=== PATIENT | female | born 1955 | race Caucasian/White ===

== ENCOUNTER 2020-06-28 16:14 | Inpatient (IN) | payer MEDICARE, MEDICAID ==
[2020-06-28] VITALS (11 sets, daily range): BP systolic 78–114; BP diastolic 57–81
[~2020-06-28] VITALS: Ht 167.6 cm; Wt 49.1 kg
[2020-06-28] MEDS ORDERED: ONDANSETRON 4 MG/2 ML (SDV) Z0FRAN IV PRN (17:45)
--- NOTE | 2020-06-28 20:00 | NUR ---
PER REBECCA FERNANDEZ, PT'S COVID RESULTS ARE NEGATIVE.
[2020-06-28] MEDS ORDERED: ENOXAPARIN 40 MG/0.4 ML (LOVENOX) SYR ONE (20:48)
[2020-06-28] MEDS ORDERED: NS IV 1000 ML 1,000 ML ONE (20:48)
[2020-06-28] MEDS: NS IV 1000 ML 1,000 ML IV SCH (20:57)
[2020-06-28] MEDS ORDERED: NS (IVPB) 100 ML ONE (21:05)
[2020-06-28] MEDS ORDERED: fentaNYL (OMNICELL DRIP KIT ONLY) 250 MCG/5 ML AMP ONE (21:05)
[2020-06-28] MEDS: inSUlin ASPART (NovoLOG) 1 UNIT/0.01 ML (CHARGE PER UNIT) SC SCH (21:27)
[2020-06-28 21:28] LABS: HEMATOCRIT 33 % (35-52); HEMOGLOBIN 10.2 g/dL (11.5-16.0); MEAN CORPUSCULAR HEMOGLOBIN 28 pg (25-34); MEAN CORPUSCULAR HGB CONC 31 g/dL (32-36); MEAN CORPUSCULAR VOLUME 90 fL (80-99); MEAN PLATELET VOLUME 9.8 fL (9.0-12.2); PLATELET COUNT 234 10^3/uL (130-400); WHITE BLOOD COUNT 15.2 10^3/uL (4.3-11.0)
--- NOTE | 2020-06-28 21:29 | Diagnostic Imaging Report ---
INDICATION: Intubated. COMPARISON: None. EXAMINATION: Single view of the chest. FINDINGS: The ET tube is in the mid to distal trachea. NG tube is well within the stomach. Heart is enlarged with interstitial infiltrates, mainly in the right hemithorax, likely pulmonary edema. Small effusion is seen in the left base. There is no pneumothorax. Pacemaker is stable. IMPRESSION: 1. Cardiac enlargement with interstitial infiltrates, more so on the right than the left, likely pulmonary edema. Underlying pneumonia not excluded. 2. Small effusion left base. 3. Well-positioned support devices. Dictated by: Dictated on workstation # [id number]
[2020-06-28] MEDS: fentaNYL INJECTION 1,250 MCG in NS (IVPB) 250 ML IV SCH (21:33)
[2020-06-28 21:36] LABS: CALCIUM 8.1 MG/DL (8.5-10.1); CREATININE SERUM 1.25 MG/DL (0.60-1.30); POTASSIUM 4.1 MMOL/L (3.6-5.0)
[2020-06-28 22:14] LABS: BASOPHILS % (AUTO) 0 % (0-10); EOSINOPHILS % (AUTO) 0 % (0-10); LYMPHOCYTES % (AUTO) 7 % (12-44); MONOCYTES # (AUTO) 0.5 X 10^3 (0.0-1.0); MONOCYTES % (AUTO) 4 % (0-12); NEUTROPHILS # (AUTO) 13.5 X 10^3 (1.8-7.8); NEUTROPHILS % (AUTO) 89 % (42-75)
[2020-06-28 22:15] LABS: ANISOCYTOSIS SLIGHT; BAND NEUTROPHILS 2 %; HYPOCHROMASIA SLIGHT; LYMPHOCYTES % (MANUAL) 8 %; MICROCYTOSIS SLIGHT; MONOCYTES % (MANUAL) 2 %; NEUTROPHILS % (MANUAL) 88 %
[2020-06-28] MEDS: LORazepam INJECTION FOR DRIP 20 MG in D5W 100 ML IVPB 90 ML IV SCH (22:33)
[2020-06-28] MEDS: ENOXAPARIN 30 MG/0.3 ML (LOVENOX) SYR SC SCH (22:37)
--- NOTE | 2020-06-28 22:43 | NUR ---
NOTIFIED E-ICU OF PATIENTS ARRIVAL AT APPROX 2100 AND RECEIVED ORDERS FOR ATIVAN AND FENT GTT.
[2020-06-29] VITALS (30 sets, daily range): BP systolic 81–104; BP diastolic 50–74
[2020-06-29 00:02] LABS: ABG BASE EXCESS 2.3 MMOL/L (-2.5-2.5); ABG OXYGEN SATURATION 98 % (94-100); ABG PCO2 41 MMHG (35-45); ABG PH 7.43 (7.37-7.43); ABG PO2 97 MMHG (79-93); ABG TCO2 27.7 MMOL/L (21.0-31.0)
[2020-06-29 00:03] LABS: INSPIRED O2 30; PATIENT TEMP 36.5; VENTILATOR YES
[2020-06-29] MEDS: NS IV 1000 ML 1,000 ML IV SCH ×4 (01:42→20:39)
--- NOTE | 2020-06-29 02:25 | NUR ---
NOTIFIED E-ICU @ THIS TIME OF 99 TELE STRIP SHOWING BUNDLE BRANCH BLOCK OF .15
[2020-06-29 02:53] LABS: BASOPHILS % (AUTO) 0 % (0-10); EOSINOPHILS # (AUTO) 0.1 10^3/uL (0.0-0.3); EOSINOPHILS % (AUTO) 1 % (0-10); HEMATOCRIT 30 % (35-52); HEMOGLOBIN 9.4 g/dL (11.5-16.0); LYMPHOCYTES # (AUTO) 1.3 10^3/uL (1.0-4.0); LYMPHOCYTES % (AUTO) 12 % (12-44); MEAN CORPUSCULAR HEMOGLOBIN 28 pg (25-34); MEAN CORPUSCULAR HGB CONC 31 g/dL (32-36); MEAN CORPUSCULAR VOLUME 92 fL (80-99); MEAN PLATELET VOLUME 9.7 fL (9.0-12.2); MONOCYTES # (AUTO) 0.5 10^3/uL (0.0-1.0); MONOCYTES % (AUTO) 5 % (0-12); NEUTROPHILS # (AUTO) 8.5 10^3/uL (1.8-7.8); NEUTROPHILS % (AUTO) 81 % (42-75); PLATELET COUNT 201 10^3/uL (130-400); WHITE BLOOD COUNT 10.4 10^3/uL (4.3-11.0)
[2020-06-29 03:15] LABS: ALBUMIN 3.1 GM/DL (3.2-4.5); POTASSIUM 3.8 MMOL/L (3.6-5.0)
[2020-06-29 03:18] LABS: TOTAL PROTEIN 5.4 GM/DL (6.4-8.2)
[2020-06-29 03:21] LABS: CREATININE SERUM 1.15 MG/DL (0.60-1.30); PHOSPHORUS 3.4 MG/DL (2.3-4.7)
[2020-06-29 03:24] LABS: MAGNESIUM 1.9 MG/DL (1.6-2.4)
[2020-06-29] MEDS: inSUlin ASPART (NovoLOG) 1 UNIT/0.01 ML (CHARGE PER UNIT) SC SCH ×4 (05:33→17:55)
--- NOTE | 2020-06-29 07:01 | History & Physical-Hospitalist ---
History of Present Illness HPI/Chief Complaint CC: Respiratory failure HPI: This is a 64yoWF who was transferred from [facility] who is currently on a vent due to CHF and COPD. Patient is sedated and having no issues. I am having difficulty finding information with clinical details. Source: patient Exam Limitations: no limitations Date Seen 06/29/20 Time Seen by a Provider: 11:00 Attending Physician Vanita Hartmann MD PCP Referring Physician Date of Admission Jun 28, 2020 at 20:38 Home Medications & Allergies Home Medications Reviewed patient Home Medication Reconciliation performed by pharmacy medication reconciliations mobile battery technician and/or nursing. Patients Allergies have been reviewed. Allergies Allergies Coded Allergies Iodinated Contrast Media (Verified Allergy, Unknown, 06/28/20) ibuprofen (Verified Allergy, Unknown, 06/28/20) iodine (Verified Allergy, Unknown, 06/28/20) Past Vrucjpo-Qxxiau-Uhrctn Hx Past Med/Social Hx: Reviewed Nursing Past Med/Soc Hx, Reviewed and Corrections made Patient Social History Alcohol Use: Denies Use Recreational Drug Use: No Smoking Status: Current Everyday Smoker Type Used: Cigarettes Physical Abuse Screen: No Sexual Abuse: No Recent Hopitalizations: Yes Seasonal Allergies Seasonal Allergies: No Past Medical History Respiratory: COPD Cardiac: Chronic Edema/Swelling Female Reproductive Disorders: Denies Genitourinary: Renal Failure Gastrointestinal: Ulcer Musculoskeletal: Arthritis, Fractures Psychosocial: Anxiety, Depression History of Blood Disorders: No Review of Systems Constitutional: see HPI Physical Exam Physical Exam Vital Signs Vital Signs - First Documented 06/28/20 06/28/20 20:38 20:52 Temp 36.8 Pulse 77 Resp 20 B/P (MAP) 112/81 Pulse Ox 97 O2 Delivery Mechanical Ventilator O2 Flow Rate 40.00 FiO2 40 Capillary Refill : Height, Weight, BMI Height: '" Weight: lbs. oz. kg; 17.97 BMI Method: General Appearance: No Apparent Distress, Chronically ill, Thin, Other (intubated) Respiratory: Lungs Clear, Decreased Breath Sounds Cardiovascular: Regular Rate, Rhythm Results Results/Procedures Labs Laboratory Tests 06/28/20 21:11 06/29/20 02:30 Patient resulted labs reviewed. Assessment/Plan Admission Diagnosis Assessment: VDRF CHF COPD Smoker Plan: Vent ICU Admission Status: Inpatient Order (span 2 midnights) Reason for Inpatient Admission: VDRF Diagnosis/Problems Diagnosis/Problems (1) Acute respiratory failure Clinical Quality Measures DVT/VTE Risk/Contraindication: Risk Factor Score Per Nursin RFS Level Per Nursing on Admit: 4+=Very High TIMA HENSON DO Jun 29, 2020 07:01
--- NOTE | 2020-06-29 07:26 | Diagnostic Imaging Report ---
EXAMINATION: Chest 1 view HISTORY: Intubation COMPARISON: Chest radiograph 06/28/2020 FINDINGS: Heart size and pulmonary vasculature are stable. Left-sided cardiac device is unchanged. Stable patchy interstitial opacities throughout both lungs. No pneumothorax. Stable small left pleural effusion. The osseous structures are intact. Lines and tubes are unchanged. IMPRESSION: 1. Cardiomegaly with stable patchy interstitial opacities may be secondary to pulmonary edema. Differential interpretation with include pneumonia in the appropriate clinical setting. 2. Small left pleural effusion. 3. Lines and tubes are unchanged. Dictated by: Dictated on workstation # [id number]
[2020-06-29] MEDS ORDERED: RT-ALBUTEROL INHALER HFA (VENTOLIN HFA) 18 GM IH PRN (07:45)
[2020-06-29] MEDS: PANTOPRAZOLE 40 MG (PROTONIX) VIAL IV SCH (07:55)
[2020-06-29] MEDS ORDERED: RT-ALBUTEROL SULF 2.5 MG/3 ML PRE-MIX VIAL INH SCH (08:00)
[2020-06-29] MEDS ORDERED: RT-ALBUTEROL INHALER HFA (VENTOLIN HFA) 18 GM IH SCH (08:00)
[2020-06-29] MEDS: LORazepam INJECTION FOR DRIP 20 MG in D5W 100 ML IVPB 90 ML IV SCH ×2 (08:05→17:55)
[2020-06-29] MEDS: RT-ALBUTEROL INHALER HFA (VENTOLIN HFA) 18 GM IH SCH ×4 (10:57→22:02)
--- NOTE | 2020-06-29 13:02 | Consultation-Cardiology ---
HPI-Cardiology Cardiology Consultation Date of Consultation 06/29/20 Date of Admission Time Seen by Provider: 12:57 Indication: acute respiratory failure HPI 64-year-old lady with extensive history, never been to this institution previously, she was intubated in the emergency room in [place] and transferred to our facility. Noted to have elevated troponin and BNP. There is q uestionable history of coronary artery disease and congestive heart failure. Unable to provide any history. History was obtained by reviewing her record Home Medications & Allergies Allergies: Coded Allergies: Iodinated Contrast Media (Verified Allergy, Unknown, 06/28/20) ibuprofen (Verified Allergy, Unknown, 06/28/20) iodine (Verified Allergy, Unknown, 06/28/20) Unable to verify her medication list HFQ-Vutnkk-Lihrht Hx Patient Social History Alcohol Use: Denies Use Recreational Drug Use: No Smoking Status: Current Everyday Smoker Type Used: Cigarettes Recent Hopitalizations: Yes Physical Abuse Screen: No Sexual Abuse: No Past Medical History Discussed below Family Medical History Family Medical Hx Unable to provide family Review of Systems-General Review of Systems Constitutional: other (sedated and intubated, unable to provide review of systems) Reviewed Test Results Reviewed Test Results Lab Laboratory Tests Test 06/28/20 20:59 06/28/20 21:11 06/28/20 23:50 06/29/20 02:30 Range/Units Glucometer 113 H 70-110 MG/DL White Blood Count 15.2 H 10.4 4.3-11.0 10^3/uL Red Blood Count 3.61 L 3.32 L 3.80-5.11 10^6/uL Hemoglobin 10.2 L 9.4 L 11.5-16.0 g/dL Hematocrit 33 L 30 L 35-52 % Mean Corpuscular Volume 90 92 80-99 fL Mean Corpuscular Hemoglobin 28 28 25-34 pg Mean Corpuscular Hemoglobin Concent 31 L 31 L 32-36 g/dL Red Cell Distribution Width 14.6 H 14.6 H 10.0-14.5 % Platelet Count 234 201 130-400 10^3/uL Mean Platelet Volume 9.8 9.7 9.0-12.2 fL Immature Granulocyte % (Auto) 1 1 % Neutrophils (%) (Auto) 89 H 81 H 42-75 % Lymphocytes (%) (Auto) 7 L 12 12-44 % Monocytes (%) (Auto) 4 5 0-12 % Eosinophils (%) (Auto) 0 1 0-10 % Basophils (%) (Auto) 0 0 0-10 % Neutrophils # (Auto) 13.5 H 8.5 H 1.8-7.8 10^3/uL Lymphocytes # (Auto) 1.0 1.3 1.0-4.0 10^3/uL Monocytes # (Auto) 0.5 0.5 0.0-1.0 10^3/uL Eosinophils # (Auto) 0.0 0.1 0.0-0.3 10^3/uL Basophils # (Auto) 0.0 0.0 0.0-0.1 10^3/uL Immature Granulocyte # (Auto) 0.1 0.1 0.0-0.1 10^3/uL Neutrophils % (Manual) 88 % Lymphocytes % (Manual) 8 % Monocytes % (Manual) 2 % Band Neutrophils 2 % Hypochromasia SLIGHT Anisocytosis SLIGHT Microcytosis SLIGHT Sodium Level 140 140 135-145 MMOL/L Potassium Level 4.1 3.8 3.6-5.0 MMOL/L Chloride Level 103 105 98-107 MMOL/L Carbon Dioxide Level 24 24 21-32 MMOL/L Anion Gap 13 11 5-14 MMOL/L Blood Urea Nitrogen 22 H 22 H 7-18 MG/DL Creatinine 1.25 1.15 0.60-1.30 MG/DL Estimat Glomerular Filtration Rate 43 48 BUN/Creatinine Ratio 18 19 Glucose Level 101 92 70-105 MG/DL Calcium Level 8.1 L 8.0 L 8.5-10.1 MG/DL Troponin I 0.054 H 0.060 H <0.028 NG/ML B-Type Natriuretic Peptide 2128.7 H <100.0 PG/ML Blood Gas Puncture Site LEFT RADIAL Blood Gas Patient Temperature 36.5 Arterial Blood pH 7.43 7.37-7.43 Arterial Blood Partial Pressure CO2 41 35-45 MMHG Arterial Blood Partial Pressure O2 97 H 79-93 MMHG Arterial Blood HCO3 26 23-27 MMOL/L Arterial Blood Total CO2 27.7 21.0-31.0 MMOL/L Arterial Blood Oxygen Saturation 98 94-100 % Arterial Blood Base Excess 2.3 -2.5-2.5 MMOL/L Dar Test UNKNOWN Blood Gas Ventilator Setting YES Blood Gas Inspired Oxygen 30 Corrected Calcium 8.7 8.5-10.1 MG/DL Phosphorus Level 3.4 2.3-4.7 MG/DL Magnesium Level 1.9 1.6-2.4 MG/DL Total Bilirubin 1.0 0.1-1.0 MG/DL Aspartate Amino Transf (AST/SGOT) 110 H 5-34 U/L Alanine Aminotransferase (ALT/SGPT) 112 H 0-55 U/L Alkaline Phosphatase 95 40-136 U/L Total Protein 5.4 L 6.4-8.2 GM/DL Albumin 3.1 L 3.2-4.5 GM/DL Test 06/29/20 07:00 06/29/20 07:48 Range/Units Troponin I 0.061 H <0.028 NG/ML Physical Exam Physical Exam Vital Signs Vital Signs - First Documented 06/28/20 06/28/20 20:38 20:52 Temp 36.8 Pulse 77 Resp 20 B/P (MAP) 112/81 Pulse Ox 97 O2 Delivery Mechanical Ventilator O2 Flow Rate 40.00 FiO2 40 Capillary Refill : Height, Weight, BMI Height: '" Weight: lbs. oz. kg; 17.97 BMI Method: General Appearance: Severe Distress, Thin, Other (sedated and intubated) HEENT: PERRL/EOMI, TMs Normal, Moist Mucous Membranes Neck: Normal Inspection, Supple Respiratory: Crackles, Decreased Breath Sounds, Respiratory Distress Cardiovascular: Regular Rate, Rhythm, Systolic Murmur, Gallop/S3 Gastrointestinal: Normal Bowel Sounds, No Organomegaly Back: Normal Inspection Extremity: Normal Capillary Refill, Normal Inspection Neurologic/Psychiatric: Other (sedated and intubated) Skin: Normal Color, Warm/Dry Lymphatic: No Adenopathy A/P-Cardiology Admission Diagnosis Congestive heart failure Type II myocardial infarction Acute respiratory failure COPD Assessment/Plan Acute respiratory failure, ventilator dependent, history of multiple hospitalization with recurrent respiratory failure. Managed by primary care team Congestive heart failure, questionable history of severe cardiomyopathy with ejection fraction 10-15 percent, no recent workup data available, I will try to obtain copy of her record from [facility] Questionable history of coronary artery disease, slight elevation in troponin, probably type II myocardial infarction secondary to heart failure and hypoxemia History of permanent pacemaker/ICD, currently in paced rhythm. Continue to monitor History of COPD with recurrent respiratory failure COVID-19 status pending Elevated liver enzymes, continue to monitor the Clinical Quality Measures DVT/VTE Risk/Contraindication: Risk Factor Score Per Nursin RFS Level Per Nursing on Admit: 4+=Very High CADEN ROBERTO MD Jun 29, 2020 1:02 pm
[2020-06-29] MEDS: FUROSEMIDE 40 MG/4 ML INJ (LASIX) IVP SCH (17:58)
[2020-06-29] MEDS: ENOXAPARIN 30 MG/0.3 ML (LOVENOX) SYR SC SCH (20:39)
[2020-06-29] MEDS ORDERED: ENOXAPARIN 40 MG/0.4 ML (LOVENOX) SYR SC SCH (21:00)
[2020-06-29] MEDS: fentaNYL INJECTION 1,250 MCG in NS (IVPB) 250 ML IV SCH (21:15)
[2020-06-30] VITALS (28 sets, daily range): BP systolic 69–101; BP diastolic 18–76
[2020-06-30] MEDS: inSUlin ASPART (NovoLOG) 1 UNIT/0.01 ML (CHARGE PER UNIT) SC SCH ×4 (01:46→18:20)
[2020-06-30] MEDS: LORazepam INJECTION FOR DRIP 20 MG in D5W 100 ML IVPB 90 ML IV SCH (01:46)
[2020-06-30] MEDS: RT-ALBUTEROL INHALER HFA (VENTOLIN HFA) 18 GM IH SCH ×6 (01:52→21:56)
[2020-06-30 02:07] LABS: ABG BASE EXCESS 0.6 MMOL/L (-2.5-2.5); ABG OXYGEN SATURATION 95 % (94-100); ABG PCO2 36 MMHG (35-45); ABG PH 7.44 (7.37-7.43); ABG PO2 73 MMHG (79-93); ABG TCO2 25.6 MMOL/L (21.0-31.0)
[2020-06-30 02:08] LABS: ALLENS TEST POSITIVE; INSPIRED O2 21; PATIENT TEMP 36; VENTILATOR YES
[2020-06-30 02:48] LABS: BASOPHILS % (AUTO) 0 % (0-10); EOSINOPHILS # (AUTO) 0.1 10^3/uL (0.0-0.3); EOSINOPHILS % (AUTO) 1 % (0-10); HEMATOCRIT 30 % (35-52); HEMOGLOBIN 9.5 g/dL (11.5-16.0); LYMPHOCYTES # (AUTO) 1.1 10^3/uL (1.0-4.0); LYMPHOCYTES % (AUTO) 11 % (12-44); MEAN CORPUSCULAR HEMOGLOBIN 29 pg (25-34); MEAN CORPUSCULAR HGB CONC 32 g/dL (32-36); MEAN CORPUSCULAR VOLUME 91 fL (80-99); MEAN PLATELET VOLUME 9.9 fL (9.0-12.2); MONOCYTES # (AUTO) 0.6 10^3/uL (0.0-1.0); MONOCYTES % (AUTO) 6 % (0-12); NEUTROPHILS # (AUTO) 7.8 10^3/uL (1.8-7.8); NEUTROPHILS % (AUTO) 81 % (42-75); PLATELET COUNT 210 10^3/uL (130-400); WHITE BLOOD COUNT 9.7 10^3/uL (4.3-11.0)
[2020-06-30 03:02] LABS: POTASSIUM 3.3 MMOL/L (3.6-5.0)
[2020-06-30 03:03] LABS: CALCIUM 7.8 MG/DL (8.5-10.1)
[2020-06-30 03:07] LABS: CREATININE SERUM 1.06 MG/DL (0.60-1.30); PHOSPHORUS 2.7 MG/DL (2.3-4.7)
[2020-06-30 03:10] LABS: MAGNESIUM 1.7 MG/DL (1.6-2.4)
[2020-06-30] MEDS: MAGNESIUM 1 GM/100 ML IVPB 100 ML IV SCH ×3 (03:28→07:48)
[2020-06-30] MEDS: POTASSIUM CL 10MEQ/50ML IVPB 50 ML IV SCH ×9 (03:28→10:00)
[2020-06-30] MEDS: KCL 20 MEQ TAB (K-DUR) PO SCH (03:28)
[2020-06-30] MEDS: FUROSEMIDE 40 MG/4 ML INJ (LASIX) IVP SCH ×2 (05:05→17:39)
[2020-06-30] MEDS: NS IV 1000 ML 1,000 ML IV SCH (05:05)
--- NOTE | 2020-06-30 05:55 | Pulmonary Consultation ---
History of Present Illness History of Present Illness Date Seen by Provider: Jun 30, 2020 Time Seen by Provider: 05:50 Date of Admission Reason for Visit: acute respiratory failure Allergies and Home Medications Allergies Coded Allergies: Iodinated Contrast Media (Verified Allergy, Unknown, 06/28/20) ibuprofen (Verified Allergy, Unknown, 06/28/20) iodine (Verified Allergy, Unknown, 06/28/20) Past Ogpliba-Awavyk-Hohhen Hx Past Med/Social Hx: Reviewed Nursing Past Med/Soc Hx, Reviewed and Corrections made Patient Social History Alcohol Use: Denies Use Recreational Drug Use: No Smoking Status: Current Everyday Smoker Type Used: Cigarettes Recent Hopitalizations: Yes Seasonal Allergies Seasonal Allergies: No Past Medical History Surgeries: Yes Respiratory: Yes Pneumonia, Pulmonary Embolism, COPD, Emphysema Cardiac: Yes Chronic Edema/Swelling Neurological: Yes Female Reproductive Disorders: Denies Genitourinary: Yes Renal Failure Gastrointestinal: Yes Ulcer Musculoskeletal: Yes Arthritis, Fractures Endocrine: Yes HEENT: No Cancer: No Psychosocial: Yes Anxiety, Depression Integumentary: No Blood Disorders: No Review of Systems Time Seen by Provider: 05:57 Sepsis Event Evaluation Height, Weight, BMI Height: '" Weight: lbs. oz. kg; 17.97 BMI Method: Exam Exam Vital Signs Date Time Temp Pulse Resp B/P (MAP) Pulse Ox O2 Delivery O2 Flow Rate FiO2 06/30/20 04:00 95 Mechanical Ventilator 21 06/30/20 01:54 69 17 92 21 06/30/20 01:46 70 19 100/62 06/30/20 00:00 91 Mechanical Ventilator 21 06/30/20 00:00 69 16 82/49 (60) 93 Mechanical Ventilator 21.00 06/29/20 23:00 69 16 84/50 (61) 92 Mechanical Ventilator 21.00 06/29/20 22:02 69 16 93 21 06/29/20 22:00 69 16 82/56 (65) 93 Mechanical Ventilator 21.00 06/29/20 21:00 96 16 99/74 (82) 92 Mechanical Ventilator 21.00 06/29/20 20:00 69 16 95/62 (73) 90 Mechanical Ventilator 21.00 06/29/20 20:00 91 Mechanical Ventilator 21 06/29/20 19:04 70 06/29/20 19:02 69 20 90 21 06/29/20 19:00 69 17 101/64 (76) 91 Mechanical Ventilator 21.00 06/29/20 18:00 69 16 93/60 (71) 90 Mechanical Ventilator 21.00 06/29/20 17:00 68 16 85/55 (65) 91 Mechanical Ventilator 21.00 06/29/20 16:00 36.5 06/29/20 16:00 91 Mechanical Ventilator 21 06/29/20 16:00 70 16 89/58 (68) 92 Mechanical Ventilator 21.00 06/29/20 15:00 69 16 88/61 (70) 91 Mechanical Ventilator 21.00 06/29/20 14:00 69 16 94/61 (72) 97 Mechanical Ventilator 21.00 06/29/20 13:54 70 20 93 21 06/29/20 13:00 69 15 91/58 (69) 93 Mechanical Ventilator 21.00 06/29/20 12:34 70 06/29/20 12:00 93 Mechanical Ventilator 21 06/29/20 12:00 36.8 06/29/20 12:00 69 16 93/54 (67) 93 Mechanical Ventilator 21.00 06/29/20 11:00 68 16 97/60 (69) 94 Mechanical Ventilator 21.00 06/29/20 10:57 69 16 94 21 06/29/20 10:00 69 16 94/65 (75) 93 Mechanical Ventilator 21.00 06/29/20 09:00 68 15 86/59 (69) 92 Mechanical Ventilator 21.00 06/29/20 08:15 92 Mechanical Ventilator 21 06/29/20 08:08 36.2 06/29/20 08:05 70 16 96/61 06/29/20 08:00 70 16 96/61 (75) 93 Mechanical Ventilator 21.00 06/29/20 07:00 70 06/29/20 07:00 69 17 93/60 (72) 92 Mechanical Ventilator 25.00 06/29/20 06:18 69 16 96 21 06/29/20 06:00 69 16 81/56 (64) 96 Mechanical Ventilator 25.00 I & O 06/30/20 07:00 Intake Total 1100 ml Output Total 2725 ml Balance -1625 ml Height & Weight Height: '" Weight: lbs. oz. kg; 17.97 BMI Method: General Appearance: No Apparent Distress, Chronically ill, Thin, Other (intubated) HEENT: PERRL/EOMI, TMs Normal, Moist Mucous Membranes Neck: Normal Inspection, Supple Respiratory: Lungs Clear, Decreased Breath Sounds Cardiovascular: Regular Rate, Rhythm Extremity: Normal Capillary Refill, Normal Inspection Neurologic/Psychiatric: Other (sedated and intubated) Skin: Normal Color, Warm/Dry Lymphatic: No Adenopathy Results Lab Laboratory Tests 06/28/20 21:11 06/29/20 02:30 06/30/20 02:30 Assessment/Plan Assessment/Plan Acute respiratory failure -Will wean ventilator -D/C all sedation for weaning CHF -Cardiology following COPD and current smoker -Education -Out pt testing Hypokalemia -Replace -Monitor SIMONA SILVA DO Jun 30, 2020 05:55
[2020-06-30] MEDS ORDERED: POTASSIUM CL 10MEQ/50ML IVPB 50 ML IV SCH (06:00)
[2020-06-30] MEDS: PANTOPRAZOLE 40 MG (PROTONIX) VIAL IV SCH (07:48)
--- NOTE | 2020-06-30 07:59 | NUR ---
Pt noted to be slightly hypotensive 70/40s. Dr. Beltre notified. No new orders received as pt had 40mg of lasix this am at 0500. Hypotension noted to take place shortly after medication given. BP cuff adjusted and manual BP obtained. 85/45 noted at this time. Will continue to monitor.
--- NOTE | 2020-06-30 08:08 | Diagnostic Imaging Report ---
INDICATION: Shortness of breath. Comparison made with prior examination of 06/29/2020. FINDINGS: Cardiomegaly. There are bibasilar infiltrates, right greater than left. No pneumothorax. Pacemaker overlies left hemithorax. ET and NG tubes remain in satisfactory position. IMPRESSION: Slight improvement in the bibasilar infiltrates which are right greater than left. Cardiomegaly. Some underlying central pulmonary venous congestion cannot be excluded. Dictated by: Dictated on workstation # [id number]
--- NOTE | 2020-06-30 08:12 | Physical Therapy Progress Note ---
Therapy Progress Note Patient currently sedated and intubated. PT to follow patient status and initiate treatment when patient is medically stable and able to actively participate with skilled therapy. MARIXA BRIGGS PT Jun 30, 2020 08:12
--- NOTE | 2020-06-30 08:28 | Occ Therapy Progress Note ---
Therapy Progress Note OT order received, chart reviewed. Pt. currently sedated and on ventilator support. Will continue to follow and assess when pt. alert and off vent. Thank you for this referral. [id number] JAKUB ROCHE OT Jun 30, 2020 08:28
--- NOTE | 2020-06-30 09:33 | Progress Note - Hospitalist ---
Subjective HPI/CC On Admission Date Seen by Provider: Jun 30, 2020 Time Seen by Provider: 09:00 CC: Respiratory failure HPI: This is a 64yoWF who was [facility] who is currently on a vent due to CHF and COPD. Patient is sedated and having no issues. I am having difficulty finding information with clinical details. Subjective/Events-last exam Pt still intubated Still remains on sedation Hypotension after Lasix, will monitor that, systolic of 89 Echocardiogram shows EF of 10% BNP elevated at 793 Potassium 3.3, receiving supplement Creatinine stable at 1.06 Objective Exam Vital Signs Vital Signs Date Time Temp Pulse Resp B/P (MAP) Pulse Ox O2 Delivery O2 Flow Rate FiO2 07/01/20 04:00 76 18 95/61 (72) 96 Nasal Cannula 2.00 06/30/20 19:50 36.8 06/30/20 10:03 35 Capillary Refill : Less Than 3 Seconds General Appearance: No Apparent Distress, WD/WN, Other (intubated) HEENT: PERRL/EOMI, Normal ENT Inspection, Pharynx Normal, Moist Mucous Membranes Neck: Normal Inspection, Supple, Carotid Bruit Respiratory: Chest Non Tender, Lungs Clear, No Accessory Muscle Use, No Respiratory Distress, Decreased Breath Sounds Cardiovascular: Regular Rate, Rhythm, No Edema, No Gallop, No JVD, No Murmur, Normal Peripheral Pulses Gastrointestinal: Normal Bowel Sounds, No Organomegaly, No Pulsatile Mass, Non Tender, Soft Back: Normal Inspection, No CVA Tenderness Extremity: Normal Capillary Refill, Normal Inspection, Non Tender, No Calf Tenderness, No Pedal Edema Skin: Normal Color, Warm/Dry Lymphatic: No Adenopathy Results/Procedures Lab Laboratory Tests 07/01/20 02:26 Patient resulted labs reviewed. Assessment/Plan Assessment and Plan Assess & Plan/Chief Complaint Assessment: VDRF CHF COPD Smoker Plan: Vent ICU 06/30/20: Monitor CHF Extubate when ready Appreciate Dr. Beltre Diagnosis/Problems Diagnosis/Problems (1) Acute respiratory failure Clinical Quality Measures DVT/VTE Risk/Contraindication: Risk Factor Score Per Nursin RFS Level Per Nursing on Admit: 4+=Very High TIMA HENSON DO Jun 30, 2020 09:33
--- NOTE | 2020-06-30 10:57 | Progress Note - Cardiology ---
Cardiology SOAP Progress Note Subjective: Intubated Follows commands Objective: I&O/Vital Signs 07/02/20 07/02/20 07/02/20 07/02/20 00:15 02:37 04:32 07:43 Temp 36.4 36.2 Pulse 71 70 70 Resp 24 25 16 B/P (MAP) 102/62 (75) 91/52 (65) Pulse Ox 100 99 100 100 O2 Delivery NIV Bilevel High Flow N/C Nasal Cannula O2 Flow Rate 50.00 50.00 4.00 4.00 07/02/20 07/02/20 08:12 08:37 Temp 36.8 Pulse 69 B/P (MAP) 105/66 (79) O2 Delivery High Flow N/C O2 Flow Rate 3.00 07/02/20 00:00 Intake Total 440 ml Output Total 1200 ml Balance -760 ml Constitutional: other (intubated; following commands) Respiratory: No accessory muscle use, No respiratory distress; other (scattered rhonchi, bi-basilar crackles) Cardiovascular: regular rate-rhythm; No JVD; S1 and S2 Gastrointestional: No tender; soft, audible bowel sounds Extremities: no lower extremity edema bilateral Neurologic/Psychiatric: grossly intact (moves extremities) Skin: No rash on exposed areas, No ulcerations on exposed areas Results/Procedures: Labs Laboratory Tests 07/01/20 17:32: Blood Gas Puncture Site RT RAD, Blood Gas Patient Temperature 36.9, Arterial Blood pH 7.37, Arterial Blood Partial Pressure CO2 40, Arterial Blood Partial Pressure O2 122H, Arterial Blood HCO3 23, Arterial Blood Total CO2 23.9, Arterial Blood Oxygen Saturation 99, Arterial Blood Base Excess -1.9, Dar Test POS, Blood Gas Ventilator Setting NO, Blood Gas Inspired Oxygen 50% 07/01/20 17:51: White Blood Count 8.8, Red Blood Count 3.52L, Hemoglobin 10.0L, Hematocrit 32L, Mean Corpuscular Volume 92, Mean Corpuscular Hemoglobin 28, Mean Corpuscular Hemoglobin Concent 31L, Red Cell Distribution Width 14.3, Platelet Count 222, Mean Platelet Volume 9.8, Immature Granulocyte % (Auto) 1, Neutrophils (%) (Auto) 85H, Lymphocytes (%) (Auto) 8L, Monocytes (%) (Auto) 5, Eosinophils (%) (Auto) 1, Basophils (%) (Auto) 0, Neutrophils # (Auto) 7.5, Lymphocytes # (Auto) 0.7L, Monocytes # (Auto) 0.4, Eosinophils # (Auto) 0.1, Basophils # (Auto) 0.0, Immature Granulocyte # (Auto) 0.0, Sodium Level 139, Potassium Level 4.0, Chloride Level 106, Carbon Dioxide Level 22, Anion Gap 11, Blood Urea Nitrogen 16, Creatinine 1.06, Estimat Glomerular Filtration Rate 52, BUN/Creatinine Ratio 15, Glucose Level 152H, Calcium Level 8.6, Corrected Calcium 9.0, Total Bilirubin 0.6, Aspartate Amino Transf (AST/SGOT) 37H, Alanine Aminotransferase ( ALT/SGPT) 81H, Alkaline Phosphatase 82, B-Type Natriuretic Peptide 1373.7H, Total Protein 6.1L, Albumin 3.5 07/02/20 05:00: Sodium Level 142, Potassium Level 3.7, Chloride Level 107, Carbon Dioxide Level 26, Anion Gap 9, Blood Urea Nitrogen 13, Creatinine 0.94, Estimat Glomerular Filtration Rate 60, BUN/Creatinine Ratio 14, Glucose Level 81, Calcium Level 8.1L, Magnesium Level 1.8 Microbiology 06/28/20 MRSA Screen - Final, Complete MRSA not isolated Procedures NAME: [facility] REC#: [id number] PT STATUS: ADM IN : 1955 PHYSICIAN: GOLDIE WISE MD ADMIT DATE: 06/28/20/ICU Signed Date of Exam:06/30/20 CHEST 1 VIEW, AP/PA ONLY INDICATION: Shortness of breath. Comparison made with prior examination of 06/29/2020. FINDINGS: Cardiomegaly. There are bibasilar infiltrates, right greater than left. No pneumothorax. Pacemaker overlies left hemithorax. ET and NG tubes remain in satisfactory position. IMPRESSION: Slight improvement in the bibasilar infiltrates which are right greater than left. Cardiomegaly. Some underlying central pulmonary venous congestion cannot be excluded. Dictated by: Dictated on workstation # [id number] Dict: 06/30/20 0756 Trans: 06/30/20 0901 CVB [id number] Interpreted by: DON BONILLA MD Electronically signed by: DON BONILLA MD 06/30/20 0901 A/P: Assessment: Acute on chronic respiratory failure - currently intubated - management per pulmonary services Acute on chronic systolic congestive heart failure Reported h/o cardiomyopathy with LVEF 10% - details unknown Slight elevation in troponin, probably type II myocardial infarction secondary to heart failure and hypoxemia History of permanent pacemaker/ICD, currently in paced rhythm History of COPD with recurrent respiratory failure COVID-19 negative Plan: Management of respiratory failure per pulmonary services Probable type II GA secondary to hypoxia Continue current regimen Replace electrolytes as indicated Monitor lab closely Records reviewed CHALINO FISH Jun 30, 2020 10:57
[2020-06-30 11:08] LABS: ABG OXYGEN SATURATION 99 % (94-100); ABG PCO2 35 MMHG (35-45); ABG PH 7.44 (7.37-7.43); ABG PO2 127 MMHG (79-93); ABG TCO2 24.9 MMOL/L (21.0-31.0)
[2020-06-30 11:12] LABS: ALLENS TEST YES-POS; INSPIRED O2 25%; PATIENT TEMP 36.4; VENTILATOR YES
--- NOTE | 2020-06-30 11:28 | NUR ---
PT extubated at this time per Dr. Beltre's orders. ABG results sent to Physician prior to extubation. Suzie RT completed extubation to 4L NC at this time. VSS. Restraints removed at 1130. Will continue to monitor.
--- NOTE | 2020-06-30 12:16 | Progress Note ---
ROSALINO BROWN MED STUDENT 06/30/20 1216: Progress Note Janette Acuña is a 64 YO female who came from [place] for SOB and had to be intubated. She was COVID negative there. On exam this morning, pt was intubated and somnolent, but awake and nodded/shook her head at yes or no questions. Had been taking off sedation last night per Dr. Beltre's orders. She was later extubated and is now 96% on 4 liters NC. She is able to answer questions with short answers because her throat is hoarse/sore from ET tube. She currently denies CP, fever, cough, leg swelling, or SOB. States she has had episodes like this before d/t her COPD. Confirms that she is from [place]. Hx limited, records are being obtained/scanned in from outside hospital. Her blood pressure has been 80's/40's, but dips to 70's/40's after Lasix. WBC this morning is 9.7, hgb is 9.5. Troponin was elevated yesterday, BNP is 792.9. Potassium is 3.3, currently being replaced. CXR from this morning showed NG and ET tubes in place, bibasilar infiltrates with right greater than left, and underlying central pulmonary congestion. Per Dr. Duval's note, pt has cardiomyopathy with LVEF 10% as well as probable AR d/t hypoxia. Has pacemaker and is in paced rhythm. KIARA HENSON DO 07/01/20 0521: Supervisory-Addendum Brief Verification & Attestation Participated in pt care: history, MDM, physical Personally performed: exam, history, MDM, supervision of care Care discussed with: Medical Student Procedures: n/a Results interpretation: Verified all documentation Verification and Attestation of Medical Student E/M Service A medical student performed and documented this service in my presence. I reviewed and verified all information documented by the medical student and made modifications to such information, when appropriate. I personally performed the physical exam and medical decision making. Kiara Henson, Jul 01, 2020,05:21 ROSALINO BROWN MED STUDENT Jun 30, 2020 12:16 KIARA HENSON DO Jul 01, 2020 05:21
--- NOTE | 2020-06-30 13:38 | Progress Note - Cardiology ---
Cardiology SOAP Progress Note Subjective: Notes weakness and malaise No cp or palp or syncope Shortness of breath better No n/v/d Objective: I&O/Vital Signs 06/30/20 06/30/20 06/30/20 06/30/20 01:46 01:54 02:00 03:00 Pulse 70 69 69 69 Resp 19 17 11 17 B/P (MAP) 100/62 88/56 (67) 87/55 (66) Pulse Ox 92 92 94 O2 Delivery Mechanical Ventilator Mechanical Ventilator O2 Flow Rate 21.00 21.00 FiO2 21 06/30/20 06/30/20 06/30/20 06/30/20 04:00 04:00 05:00 05:25 Pulse 69 70 69 Resp 15 15 15 B/P (MAP) 93/61 (72) 81/52 (62) 94/61 (72) Pulse Ox 95 95 95 95 O2 Delivery Mechanical Ventilator Mechanical Ventilator Mechanical Ventilator Mechanical Ventilator O2 Flow Rate 21.00 21.00 21.00 FiO2 21 06/30/20 06/30/20 06/30/20 06/30/20 06:00 06:29 06:50 07:00 Pulse 69 69 71 69 Resp 15 16 16 B/P (MAP) 85/54 (64) 77/43 (54) Pulse Ox 95 94 92 O2 Delivery Mechanical Ventilator Mechanical Ventilator O2 Flow Rate 21.00 21.00 FiO2 21 06/30/20 06/30/20 06/30/20 06/30/20 07:54 08:00 09:00 10:00 Temp 36.3 Pulse 69 69 68 Resp 16 18 17 B/P (MAP) 77/43 (54) 69/18 (35) 98/54 (69) Pulse Ox 93 94 97 88 O2 Delivery Mechanical Ventilator Mechanical Ventilator Mechanical Ventilator Mechanical Ventilator O2 Flow Rate 25.00 21.00 21.00 FiO2 21 06/30/20 06/30/20 06/30/20 06/30/20 10:03 10:14 11:00 11:28 Pulse 70 70 Resp 18 17 B/P (MAP) 83/61 (68) Pulse Ox 92 100 100 O2 Delivery Mechanical Ventilator Mechanical Ventilator Nasal Cannula O2 Flow Rate 35.00 35.00 4.00 FiO2 35 06/30/20 06/30/20 06/30/20 06/30/20 11:28 11:55 12:00 12:00 Temp 36.6 Pulse 70 Resp 19 B/P (MAP) 98/62 (74) Pulse Ox 96 94 O2 Delivery Nasal Cannula Nasal Cannula Nasal Cannula O2 Flow Rate 4.00 4.00 4.00 06/30/20 00:00 Intake Total 1000 ml Output Total 2075 ml Balance -1075 ml Constitutional: AAO x 3, well-developed Respiratory: No accessory muscle use, No respiratory distress; other (scattered rhonchi, bi-basilar crackles) Cardiovascular: regular rate-rhythm; No JVD; S1 and S2, systolic murmur (2/6 STAN ) Gastrointestional: No tender; soft, audible bowel sounds Extremities: No clubbing, No cyanosis; no lower extremity edema bilateral Neurologic/Psychiatric: oriented x 3, other (moves all limbs equally) Skin: No rash on exposed areas, No ulcerations on exposed areas Results/Procedures: Labs Laboratory Tests 06/29/20 17:36: Glucometer 70 06/30/20 01:50: Blood Gas Puncture Site RIGHT RADIAL, Blood Gas Patient Temperature 36, Arterial Blood pH 7.44H, Arterial Blood Partial Pressure CO2 36, Arterial Blood Partial Pressure O2 73L, Arterial Blood HCO3 25, Arterial Blood Total CO2 25.6, Arterial Blood Oxygen Saturation 95, Arterial Blood Base Excess 0.6, Dar Test POSITIVE, Blood Gas Ventilator Setting YES, Blood Gas Inspired Oxygen 21 06/30/20 02:30: White Blood Count 9.7, Red Blood Count 3.32L, Hemoglobin 9.5L, Hematocrit 30L, Mean Corpuscular Volume 91, Mean Corpuscular Hemoglobin 29, Mean Corpuscular Hemoglobin Concent 32, Red Cell Distribution Width 14.6H, Platelet Count 210, Mean Platelet Volume 9.9, Immature Granulocyte % (Auto) 0, Neutrophils (%) (Auto) 81H, Lymphocytes (%) (Auto) 11L, Monocytes (%) (Auto) 6, Eosinophils (%) (Auto) 1, Basophils (%) (Auto) 0, Neutrophils # (Auto) 7.8, Lymphocytes # (Auto) 1.1, Monocytes # (Auto) 0.6, Eosinophils # (Auto) 0.1, Basophils # (Auto) 0.0, Immature Granulocyte # (Auto) 0.0, Sodium Level 142, Potassium Level 3.3L, Chloride Level 109H, Carbon Dioxide Level 22, Anion Gap 11, Blood Urea Nitrogen 18, Creatinine 1.06, Estimat Glomerular Filtration Rate 52, BUN/Creatinine Ratio 17, Glucose Level 71, Calcium Level 7.8L, Phosphorus Level 2.7, Magnesium Level 1.7, B-Type Natriuretic Peptide 792.9H 06/30/20 11:00: Blood Gas Puncture Site LR, Blood Gas Patient Temperature 36.4, Arterial Blood pH 7.44H, Arterial Blood Partial Pressure CO2 35, Arterial Blood Partial Pressure O2 127H, Arterial Blood HCO3 24, Arterial Blood Total CO2 24.9, Arterial Blood Oxygen Saturation 99, Arterial Blood Base Excess 0.0, Dar Test YES-POS, Blood Gas Ventilator Setting YES, Blood Gas Inspired Oxygen 25% 06/30/20 11:22: Glucometer 81 Microbiology 06/28/20 MRSA Screen - Final, Complete MRSA not isolated Laboratory Tests 06/28/20 21:11 06/29/20 02:30 06/30/20 02:30 A/P: Assessment: Acute on chronic respiratory failure Acute on chronic systolic congestive heart failure Report a h/o CAD and coronary stents and cardiomyopathy. Does not know details. [employer] Officer is Dr Nichols in [place], [place] Slight elevation in troponin, probably type II myocardial infarction secondary to heart failure and hypoxemia History of permanent pacemaker/ICD, followed by Dr Cifuentes History of COPD with recurrent respiratory failure COVID-19 negative Plan: Echo Replenish and monitor lytes Add bb and GUERRERO inhib if bp tolerates Try to obtain cardiac records from [place] Management of respiratory failure per pulmonary services FERMÍN TYLER MD FACP FAC CCDS Jun 30, 2020 13:38
--- NOTE | 2020-06-30 15:50 | NUR ---
Received dietary consult regarding pt's vent status. Note pt has been extubated at this time. Will continue to follow and reassess as pt needs, intake, and status change. Rod Mack, MS RD LD
[2020-06-30] MEDS ORDERED: FURO40TA4 PO (16:17)
[2020-06-30] MEDS ORDERED: IPRA3AMP31 NEB (16:17)
[2020-06-30] MEDS ORDERED: PRD20T PO (16:17)
[2020-06-30] MEDS ORDERED: MONT10TA26 PO (16:17)
[2020-06-30] MEDS ORDERED: AMIO400T5 PO (16:18)
[2020-06-30] MEDS ORDERED: TIOT18CA2 INH (16:18)
[2020-06-30] MEDS ORDERED: ASPI-1238 PO (16:18)
[2020-06-30] MEDS ORDERED: POLY17PO6 PO (16:18)
[2020-06-30] MEDS ORDERED: ATOR20TA66 PO (16:18)
--- NOTE | 2020-06-30 16:19 | NUR ---
SPOKE WITH THE PT, WENT THRU THE EXT MED HISTORY AND CALLED [facility] TO COMPLETE THE MED REC ACCORDING TO THE PT SHE IS NO LONGER TAKING MEXILETINE 150MG, ENTRESTO 24/26MG AND SPIRONOLACTONE 25MG LEVOTHYROXINE 50MCG AND POTASSIUM WERE BOTH LISTED ON A MED LIST THE PT HAD ON HER PHONE HOWEVER THESE HAVE NOT BEEN FILLED SINCE NOVEMBER 2019 FOR 90 DAY SUPPLY (FOR THIS REASON I DID NOT ADD THEM TO THE MED REC) AMIODARONE- ON THE PT MED LIST IT SAYS 200MG HOWEVER [facility] HAS MOST RECENTLY FILLED THE 400MG TID. WHEN I ASKED THE PT SHE SAID WHATEVER [facility] HAS IS THE [facility] CURRENT OTC MEDS: ASPIRIN 81 MIRALAX
[2020-06-30] MEDS: CARVEDILOL 3.125 MG (COREG) TABLET PO SCH (21:43)
[2020-06-30] MEDS: ENOXAPARIN 30 MG/0.3 ML (LOVENOX) SYR SC SCH (22:53)
[2020-07-01] VITALS (16 sets, daily range): BP systolic 81–132; BP diastolic 40–82
[2020-07-01] MEDS: inSUlin ASPART (NovoLOG) 1 UNIT/0.01 ML (CHARGE PER UNIT) SC SCH ×2 (00:20→04:44)
[2020-07-01] MEDS: RT-ALBUTEROL INHALER HFA (VENTOLIN HFA) 18 GM IH SCH ×5 (02:20→21:40)
[2020-07-01 02:36] LABS: BASOPHILS % (AUTO) 0 % (0-10); EOSINOPHILS # (AUTO) 0.1 10^3/uL (0.0-0.3); EOSINOPHILS % (AUTO) 1 % (0-10); HEMATOCRIT 30 % (35-52); HEMOGLOBIN 9.4 g/dL (11.5-16.0); LYMPHOCYTES # (AUTO) 1.1 10^3/uL (1.0-4.0); LYMPHOCYTES % (AUTO) 15 % (12-44); MEAN CORPUSCULAR HEMOGLOBIN 29 pg (25-34); MEAN CORPUSCULAR HGB CONC 31 g/dL (32-36); MEAN CORPUSCULAR VOLUME 91 fL (80-99); MEAN PLATELET VOLUME 9.5 fL (9.0-12.2); MONOCYTES # (AUTO) 0.5 10^3/uL (0.0-1.0); MONOCYTES % (AUTO) 7 % (0-12); NEUTROPHILS % (AUTO) 77 % (42-75); PLATELET COUNT 198 10^3/uL (130-400); WHITE BLOOD COUNT 7.8 10^3/uL (4.3-11.0)
[2020-07-01 02:46] LABS: CHLORIDE 109 MMOL/L (98-107); POTASSIUM 4.1 MMOL/L (3.6-5.0); SODIUM 142 MMOL/L (135-145)
[2020-07-01 02:47] LABS: CALCIUM 8.1 MG/DL (8.5-10.1)
[2020-07-01 02:48] LABS: GLUCOSE 63 MG/DL (70-105)
[2020-07-01 02:49] LABS: CARBON DIOXIDE 23 MMOL/L (21-32)
[2020-07-01 02:51] LABS: PHOSPHORUS 3.4 MG/DL (2.3-4.7)
[2020-07-01 02:52] LABS: BUN/CREATININE RATIO 16; CREATININE SERUM 0.92 MG/DL (0.60-1.30); GFR ESTIMATED > 60
[2020-07-01 02:54] LABS: MAGNESIUM 2.2 MG/DL (1.6-2.4)
--- NOTE | 2020-07-01 03:55 | Pulmonary Progress Note ---
OLIVIA ARMIJO MED STUDENT 07/01/20 0355: Subjective Date Seen by a Provider: Jul 01, 2020 Time Seen by a Provider: 03:50 Subjective/Events-last exam Pt stated improvement from yesterday, has no complaints or requests when asked Review of Systems General: No Chills Pulmonary: Other (some shortness of breath) Cardiovascular: No: Chest Pain, Palpitations, Edema Sepsis Event Evaluation Sepsis Stage: Ruled Out Height, Weight, BMI Height: '" Weight: lbs. oz. kg; 17.97 BMI Method: Focused Exam Sepsis Stage: Ruled Out Respiratory: Chest Non Tender, Lungs Clear, No Accessory Muscle Use, No Respiratory Distress, Decreased Breath Sounds Cardiovascular: Regular Rate, Rhythm, No Edema, No Gallop, No Murmur Peripheral Pulses: 2+ Dorsalis Pedis (R), 2+ Left Dors-Pedis (L) Skin: normal color, warm/dry Exam Exam Vital Signs Date Time Temp Pulse Resp B/P (MAP) Pulse Ox O2 Delivery O2 Flow Rate FiO2 07/01/20 02:21 99 Nasal Cannula 2.00 07/01/20 00:00 69 12 97/56 (70) 99 Nasal Cannula 2.00 07/01/20 00:00 96 Nasal Cannula 2.00 06/30/20 23:00 69 16 94/55 (68) 98 Nasal Cannula 2.00 06/30/20 22:00 69 12 91/53 (66) 98 Nasal Cannula 2.00 06/30/20 21:56 98 Nasal Cannula 2.00 06/30/20 21:00 70 13 87/56 (66) 94 Nasal Cannula 2.00 06/30/20 20:00 96 Nasal Cannula 2.00 06/30/20 20:00 70 16 96/59 (71) 98 Nasal Cannula 2.00 06/30/20 19:50 36.8 06/30/20 19:20 99 Nasal Cannula 4.00 06/30/20 19:00 69 06/30/20 19:00 69 14 99/64 (76) 100 Nasal Cannula 4.00 06/30/20 18:00 70 44 96/56 (69) 100 Nasal Cannula 4.00 06/30/20 17:00 69 101/76 (84) 100 Nasal Cannula 4.00 06/30/20 16:00 37.0 06/30/20 16:00 73 50 101/60 (74) 99 Nasal Cannula 4.00 06/30/20 16:00 96 Nasal Cannula 4.00 06/30/20 15:00 69 18 99/60 (73) 93 Nasal Cannula 4.00 06/30/20 14:46 94 06/30/20 14:00 71 19 99/57 (71) Nasal Cannula 4.00 06/30/20 13:00 70 14 91/54 (66) Nasal Cannula 4.00 06/30/20 12:38 70 06/30/20 12:00 36.6 06/30/20 12:00 70 19 98/62 (74) 94 Nasal Cannula 4.00 06/30/20 11:55 96 Nasal Cannula 4.00 06/30/20 11:28 Nasal Cannula 4.00 06/30/20 11:28 100 Nasal Cannula 4.00 06/30/20 11:00 70 17 83/61 (68) 100 Mechanical Ventilator 35.00 06/30/20 10:14 Mechanical Ventilator 35.00 06/30/20 10:03 70 18 92 35 06/30/20 10:00 68 17 98/54 (69) 88 Mechanical Ventilator 21.00 06/30/20 09:00 69 18 69/18 (35) 97 Mechanical Ventilator 21.00 06/30/20 08:00 94 Mechanical Ventilator 21 06/30/20 07:54 36.3 69 16 77/43 (54) 93 Mechanical Ventilator 25.00 06/30/20 07:00 69 16 77/43 (54) 92 Mechanical Ventilator 21.00 06/30/20 06:50 71 06/30/20 06:29 69 16 94 21 06/30/20 06:00 69 15 85/54 (64) 95 Mechanical Ventilator 21.00 06/30/20 05:25 69 15 94/61 (72) 95 Mechanical Ventilator 21.00 06/30/20 05:00 70 15 81/52 (62) 95 Mechanical Ventilator 21.00 06/30/20 04:00 95 Mechanical Ventilator 21 06/30/20 04:00 69 15 93/61 (72) 95 Mechanical Ventilator 21.00 I & O 07/01/20 07:00 Intake Total 1100 ml Output Total 750 ml Balance 350 ml Height & Weight Height: '" Weight: lbs. oz. kg; 17.97 BMI Method: General Appearance: No Apparent Distress, WD/WN HEENT: PERRL/EOMI, Moist Mucous Membranes Neck: Normal Inspection, Supple Respiratory: Chest Non Tender, Lungs Clear, Normal Breath Sounds, No Accessory Muscle Use, No Respiratory Distress Cardiovascular: Regular Rate, Rhythm, No Edema, No Gallop, No JVD, No Murmur, Normal Peripheral Pulses Capillary Refill: Less Than 3 Seconds Gastrointestinal: non tender, soft Extremity: Normal Inspection, Non Tender, No Pedal Edema Neurologic/Psychiatric: Alert, No Motor/Sensory Deficits, Normal Mood/Affect Skin: Normal Color, Warm/Dry Lymphatic: No Adenopathy Results Lab Laboratory Tests 06/30/20 02:30 07/01/20 02:26 Assessment/Plan Assessment/Plan acute respiratory failure -continue on nasal cannula 2L -pt appears comfortable and believes she is ready to go home -monitor for worsening of sx -possible discharge today -pt education prior to discharge, especially with hx of COPD and recurrent hospitalizations for shortness of breath hypoglycemia -glucose of 61 -monitor I/O -monitor for hypoglycemic sx- lethargy, confusion, palpitations, anxiety, coma -if sx present but able to swallow, give pt fruit juice, then repeat BG in 15min -if sx present but unable to swallow, give 1gm glucagon IM and turn patient on side to prevent aspiration, then repeat BG in 15min microcytic anemia -monitor for sx -pt education -pt may live here- postmenopausal, low BMI, low reserves hypokalemia -resolved, K 4.1 at 226am hypocalcemia -monitor for sx, pt may live here -pt education prior to discharge hyperchloremia -monitor for sx DVT prophylaxis: SCD present SIMONA BELTRE DO 07/01/20 0515: Exam Exam General Appearance: No Apparent Distress HEENT: PERRL/EOMI Neck: Normal Inspection, Supple Respiratory: Chest Non Tender, Lungs Clear, Normal Breath Sounds, No Accessory Muscle Use, No Respiratory Distress Cardiovascular: Regular Rate, Rhythm, No Edema, No Gallop, No JVD, No Murmur, Normal Peripheral Pulses Gastrointestinal: non tender, soft Extremity: Normal Inspection, Non Tender Neurologic/Psychiatric: Alert, No Motor/Sensory Deficits Skin: Normal Color, Warm/Dry Assessment/Plan Assessment/Plan acute respiratory failure -S/p Vent Extubated 06/30 -Currently on nasal cannula 2L Hypotension with decreased UO -Give liter bolus over 2 hours CHF -Cardiology following COPD and current smoker -Education -Out pt testing Hypokalemia -Replace -Monitor DVT prophylaxis: SCD present Supervisory-Addendum Brief Verification & Attestation Participated in pt care: history, MDM, physical Personally performed: exam, history, MDM Care discussed with: Medical Student Procedures: n/a Verification and Attestation of Medical Student E/M Service A medical student performed and documented this service in my presence. I reviewed and verified all information documented by the medical student and made modifications to such information, when appropriate. I personally performed the physical exam and medical decision making. Simona Beltre, Jul 01, 2020,05:19 OLIVIA ARMIJO STUDENT Jul 01, 2020 03:55 SIMONA BELTRE DO Jul 01, 2020 05:15
[2020-07-01] MEDS: MAGNESIUM 1 GM/100 ML IVPB 100 ML IV SCH (04:44)
[2020-07-01] MEDS: KCL 20 MEQ TAB (K-DUR) PO SCH (04:44)
[2020-07-01] MEDS ORDERED: LACTATED RINGERS 1,000 ML IV SCH (05:15)
--- NOTE | 2020-07-01 08:18 | Diagnostic Imaging Report ---
INDICATION: Post extubation, shortness of air. TECHNIQUE: Single view chest 2:50 AM. CORRELATION STUDY: 06/30/2020 FINDINGS: Interval extubation and removal of gastric tube. Small IV catheter in the neck on the left unchanged. Left-sided AICD remains in place with unchanged prominent cardiac enlargement. Vasculature has increased slightly from prior. Chronic appearing changes lung fernandze with COPD. Prominent interstitial markings overall increased likely component edema. Superimposed infiltrate not excluded. Small pleural effusions also appear adversely changed. Likely old healed left proximal humerus fracture. IMPRESSION: 1. Interval extubation and gastric tube removal. 2. Component pulmonary vascular congestion along with interstitial edema and small effusions has adversely changed. Dictated by: Dictated on workstation # [id number]
[2020-07-01] MEDS: PANTOPRAZOLE 40 MG (PROTONIX) VIAL IV SCH (08:28)
[2020-07-01] MEDS: ENALAPRIL 2.5 MG (VASOTEC) TAB PO SCH (08:29)
[2020-07-01] MEDS: CARVEDILOL 3.125 MG (COREG) TABLET PO SCH ×3 (08:29→21:14)
[2020-07-01] MEDS ORDERED: FUROSEMIDE 40 MG/4 ML INJ (LASIX) IVP SCH (09:00)
--- NOTE | 2020-07-01 09:39 | Physical Therapy Evaluation ---
PT Evaluation-General Medical Diagnosis Admission Date Jun 28, 2020 at 20:38 Medical Diagnosis: respiratory failure Onset Date: Jun 28, 2020 Therapy Diagnosis Therapy Diagnosis: debility/weakness Precautions Precautions/Isolations: Standard Precautions Referral Physician: Mary Kate Reason for Referral: Evaluation/Treatment Medical History Pertinent Medical History: COPD, Heart Failure, Renal Insufficiency, Smoking Current History transfer from OSH and recently extubated Reviewed History: Yes Social History Home: Apartment Current Living Status: Alone Entry Into Home: Level Entry Prior Prior Level of Function SCALE: Activities may be completed with or without assistive devices. 9-[id number]-[id number] completes the activity by him/herself with no assistance from a helper. 5-Set-up or Clean-up Assistance-helper sets up or cleans up; patient completes activity. [place] assists only prior to or following the activity. 4-Supervision or Touching Assistance-helper provides verbal cues and/or touching/steadying and/or contact guard assistance as patient completes activity. Assistance may be provided throughout the activity or intermittently. 3-Partial/Moderate Assistance-helper does LESS THAN HALF the effort. [place] lifts, holds or supports trunk or limbs, but provides less than half the effort. 2-Substantial/Maximal Assistance-helper does MORE THAN HALF the effort. [place] lifts or holds trunk or limbs and provides more than half the effort. 1-Lpmjxxvaq-ctxrob does ALL the effort. Patient does none of the effort to complete the activity. Or, the assistance of 2 or more helpers is required for the patient to complete the activity. If activity was not attempted, code reason: 7-Patient Refused. 9-Not Applicable-not attempted and the patient did not perform the activity before the current illness, exacerbation or injury. 10-Not Attempted due to Environmental Limitations-(lack of equipment, weather restraints, etc.). 88-Not Attempted due to Medical Conditions or Safety Concerns. Bed Mobility: 6 Transfers (B,C,W/C): 6 Gait: 6 Stairs: 9 Indoor Mobility (Ambulation): Independent Stairs: Not Applicalbe Prior Devices Use: Walker PT Evaluation-Current Subjective Patient is very agreeable to participate with PT. Pain Numeric Pain Scale: 0-No Pain Location: No Pain Reported Objective Patient Orientation: Person, Time, Situation Attachments: Oxygen, Estevez Catheter ROM/Strength ROM Lower Extremities bilateral LE WFL Strength Lower Extremities 4/5 grossly bilateral LE Integumentary/Posture Integumentary refer to nursing notes Bladder Incontinence: Estevez Cath Posture WFL Neuromuscular (Tone, Coordination, Reflexes) grossly intact Sensory Vision: Functional Hearing: Functional Transfers Roll Left to Right (QC): 6 Lying to Sitting/Side of Bed(Q: 6 Sit to Stand (QC): 5 Chair/Cgn-jj-Ogojt Xfer(QC): 5 patient dons socks with set up Gait Does the Patient Walk?: Yes Mode of Locomotion: Walk Anticipated Mode of Locomotion: Walk Walk 10 feet (QC): 5 Walk 50 ft with 2 Turns(QC): 5 Distance: 50' Gait Assistive Device: FWW Balance Sitting Static: Normal Sitting Dynamic: Normal Standing Static: Normal Standing Dynamic: Normal Assessment/Needs 64 y.o. female, will be seen short term by skilled PT to address functional mobility to ensure safe return to home. Rehab Potential: Fair PT Jail Goals Special Effects Technician Goals PT Special Effects Technician Goals Time Frame: Jul 12, 2020 Roll Left & Right (QC): 6 Sit to Lying (QC): 6 Lying-Sitting on Side/Bed(QC): 6 Sit to Stand (QC): 6 Chair/Ugc-si-Yxtav Xfer(QC): 6 Toilet Transfer (QC): 6 Does the Patient Walk: Yes Walk 10 feet (QC): 6 Walk 50ft with 2 Turns (QC): 6 Walk 150 ft (QC): 6 PT Plan Problem List Problem List: Activity Tolerance, Safety Treatment/Plan Treatment Plan: Continue Plan of Care Treatment Plan: Education, Functional Activity Annelise, Functional Strength, Gait, Safety, Therapeutic Exercise, Transfers Treatment Duration: Jul 12, 2020 Frequency: 6 times per week Estimated Hrs Per Day: .25 hour per day Patient and/or Family Agrees t: Yes Time/GCodes Time In: 903 Time Out: 915 Total Billed Treatment Time: 12 Total Billed Treatment 1 visit EVModC 12 min MARIXA BRIGGS PT Jul 01, 2020 09:39
--- NOTE | 2020-07-01 09:49 | Progress Note - Hospitalist ---
Subjective HPI/CC On Admission Date Seen by Provider: Jul 01, 2020 Time Seen by Provider: 09:00 CC: Respiratory failure HPI: This is a 64yoWF who was transferred from OSH who is currently on a vent due to CHF and COPD. Patient is sedated and having no issues. I am having difficulty finding information with clinical details. Subjective/Events-last exam Pt extubated and doing very well Low BP is chronic for the pt Now is currently on two liters of nasal cannula that she uses at home Transferring to 4th floor Discontinuing the catheter PT and OT will be ordered and IS Review of Systems General: Fatigue, Malaise Neurological: Weakness Objective Exam Vital Signs Vital Signs Date Time Temp Pulse Resp B/P (MAP) Pulse Ox O2 Delivery O2 Flow Rate FiO2 07/02/20 04:32 36.2 70 16 91/52 (65) 100 High Flow N/C 4.00 07/01/20 21:10 50 Capillary Refill : Less Than 3 Seconds General Appearance: No Apparent Distress, WD/WN HEENT: PERRL/EOMI, TMs Normal, Normal ENT Inspection, Pharynx Normal, Moist Mucous Membranes Neck: Full Range of Motion, Normal Inspection, Non Tender, Supple, Carotid Bruit Respiratory: Chest Non Tender, Lungs Clear, Normal Breath Sounds, No Accessory Muscle Use, No Respiratory Distress Cardiovascular: Regular Rate, Rhythm, No Edema, No Gallop, No JVD, No Murmur, Normal Peripheral Pulses Gastrointestinal: Normal Bowel Sounds, No Organomegaly, No Pulsatile Mass, Non Tender, Soft Back: Normal Inspection, No CVA Tenderness, No Vertebral Tenderness Extremity: Normal Capillary Refill, Normal Inspection, Normal Range of Motion, Non Tender, No Calf Tenderness, No Pedal Edema Neurologic/Psychiatric: Alert, Oriented x3, No Motor/Sensory Deficits, Normal Mood/Affect Skin: Normal Color, Warm/Dry Lymphatic: No Adenopathy Results/Procedures Lab Laboratory Tests 07/01/20 17:51 Patient resulted labs reviewed. Assessment/Plan Assessment and Plan Assess & Plan/Chief Complaint Assessment: VDRF CHF COPD Smoker Plan: Vent ICU 06/30/20: Monitor CHF Extubate when ready Appreciate Dr. Beltre 07/01/20: Transfer to 4th floor Discontinue catheter PT/OT and rehab eval Use incentive spirometer Diagnosis/Problems Diagnosis/Problems (1) Acute respiratory failure Clinical Quality Measures DVT/VTE Risk/Contraindication: Risk Factor Score Per Nursin RFS Level Per Nursing on Admit: 4+=Very High TIMA HENSON DO Jul 01, 2020 09:49
[2020-07-01] MEDS ORDERED: LOPERAMIDE 2 MG (IMODIUM) TABLET PO PRN (10:00)
[2020-07-01] MEDS ORDERED: HYDROcodone/APAP 5 MG/325 MG (LORTAB) TAB PO PRN (10:00)
[2020-07-01] MEDS ORDERED: MELATONIN 3 MG TABLET PO PRN (10:00)
[2020-07-01] MEDS ORDERED: diphenhydrAMINE 25 MG TAB (BENADRYL) PO PRN (10:00)
[2020-07-01] MEDS ORDERED: CALCIUM CARBONATE 500 MG (TUMS) TAB.CHEW PO PRN (10:00)
[2020-07-01] MEDS ORDERED: LACTULOSE SYRUP 10GM/15ML (ENULOSE) 30ML UDC PO PRN (10:00)
[2020-07-01] MEDS ORDERED: DOCUSATE SODIUM 100 MG (COLACE) CAP PO PRN (10:00)
[2020-07-01] MEDS ORDERED: RT-ALBUTEROL/IPRATROPIUM 3 ML (DUONEB) VIAL IH PRN (10:00)
[2020-07-01] MEDS ORDERED: TIOTROPIUM BROMIDE (SPIRIVA) 5'S INHALER IH PRN (10:00)
[2020-07-01] MEDS ORDERED: polyethylene glycoL POWDER 17 GM (MIRALAX) PACK PO PRN (10:00)
[2020-07-01] MEDS ORDERED: ACETAMINOPHEN 500 MG TAB (TYLENOL) PO PRN (10:00)
[2020-07-01] MEDS: UMECLIDINIUM BROMIDE (INCRUSE ELLIPTA) 7'S IH PRN (11:00)
--- NOTE | 2020-07-01 11:15 | NUR ---
Pastoral care visit, pt was not talkative at all, offered prayer and support and availability.
--- NOTE | 2020-07-01 11:27 | Progress Note - Cardiology ---
Cardiology SOAP Progress Note Subjective: Shortness of breath improving No cp No palp or syncope Gen weakness Does not report focal weakness No n/v/d Objective: I&O/Vital Signs 07/01/20 07/01/20 07/01/20 07/01/20 00:00 00:00 01:00 01:00 Pulse 69 69 69 Resp 12 13 B/P (MAP) 97/56 (70) 87/59 (68) Pulse Ox 96 99 100 O2 Delivery Nasal Cannula Nasal Cannula Nasal Cannula O2 Flow Rate 2.00 2.00 2.00 07/01/20 07/01/20 07/01/20 07/01/20 02:00 02:21 03:00 04:00 Pulse 69 70 Resp 12 28 B/P (MAP) 92/57 (69) 92/55 (67) Pulse Ox 100 99 96 96 O2 Delivery Nasal Cannula Nasal Cannula Nasal Cannula Nasal Cannula O2 Flow Rate 2.00 2.00 2.00 2.00 07/01/20 07/01/20 07/01/20 07/01/20 04:00 05:00 06:00 06:44 Pulse 76 69 69 73 Resp 18 25 12 B/P (MAP) 95/61 (72) 81/42 (55) 90/57 (68) Pulse Ox 96 97 98 O2 Delivery Nasal Cannula Nasal Cannula Nasal Cannula O2 Flow Rate 2.00 2.00 2.00 07/01/20 07/01/20 07/01/20 07/01/20 07:06 07:22 08:00 11:00 Temp 35.7 Pulse Ox 92 98 97 O2 Delivery Nasal Cannula Nasal Cannula Nasal Cannula O2 Flow Rate 2.00 1.00 1.00 07/01/20 11:00 Pulse Ox 97 O2 Delivery Nasal Cannula O2 Flow Rate 1.00 07/01/20 00:00 Intake Total 200 ml Output Total 350 ml Balance -150 ml Constitutional: AAO x 3, well-developed Respiratory: No accessory muscle use, No respiratory distress; other (scattered rhonchi, bi-basilar crackles) Cardiovascular: regular rate-rhythm; No JVD; S1 and S2, systolic murmur (2/6 STAN ) Gastrointestional: No tender; soft, audible bowel sounds Extremities: No clubbing, No cyanosis; no lower extremity edema bilateral Neurologic/Psychiatric: oriented x 3, other (moves all limbs equally) Skin: normal color, warm/dry Results/Procedures: Labs Laboratory Tests 06/30/20 18:05: Glucometer 77 07/01/20 02:26: White Blood Count 7.8, Red Blood Count 3.30L, Hemoglobin 9.4L, Hematocrit 30L, Mean Corpuscular Volume 91, Mean Corpuscular Hemoglobin 29, Mean Corpuscular Hemoglobin Concent 31L, Red Cell Distribution Width 14.4, Platelet Count 198, Mean Platelet Volume 9.5, Immature Granulocyte % (Auto) 0, Neutrophils (%) (Auto) 77H, Lymphocytes (%) (Auto) 15, Monocytes (%) (Auto) 7, Eosinophils (%) (Auto) 1, Basophils (%) (Auto) 0, Neutrophils # (Auto) 6.0, Lymphocytes # (Auto) 1.1, Monocytes # (Auto) 0.5, Eosinophils # (Auto) 0.1, Basophils # (Auto) 0.0, Immature Granulocyte # (Auto) 0.0, Sodium Level 142, Potassium Level 4.1, Chloride Level 109H, Carbon Dioxide Level 23, Anion Gap 10, Blood Urea Nitrogen 15, Creatinine 0.92, Estimat Glomerular Filtration Rate > 60, BUN/Creatinine Ratio 16, Glucose Level 63L, Calcium Level 8.1L, Phosphorus Level 3.4, Magnesium Level 2.2 Microbiology 06/28/20 MRSA Screen - Final, Complete MRSA not isolated Laboratory Tests 06/30/20 02:30 07/01/20 02:26 A/P: Assessment: Acute on chronic systolic congestive heart failure Severe dilated cardiomyopathy. Echo of 07/01/20: global hypokinesis and marked enlargement of LV with LVEF approx 15-20%, mild enlargement of LA, mild MR, mod TR, pulmonary hypertension with PASP approx 45-50 mmHg, small amt of pericardial fluid (hemodynamically insignificant) Report a h/o CAD and coronary stents and cardiomyopathy. Does not know details. Employee Relations Representative is Dr Nichols in [place], [place] Slight elevation in troponin, probably type II myocardial infarction secondary to heart failure and hypoxemia History of permanent pacemaker-ICD, followed by Dr Nichols History of COPD with recurrent respiratory failure COVID-19 negative Plan: Complex management due to advanced dilated cardiomyopathy and relatively low bp that does not permit enough bb and GUERRERO inhib Change furosemide to oral Add K Monitor labs DVT prophylaxis with enoxaparin FERMÍN TYLER MD [facility] Jul 01, 2020 11:27
--- NOTE | 2020-07-01 11:50 | Progress Note ---
ROSALINO BROWN MED STUDENT 07/01/20 1150: Progress Note Outside records show pt initially presented to [facility] in [place], [place] with SOB. Pt was ventilated with BVM by EMS and was intubated on arrival. Pt was sedated with Versed and transported to [facility] via air. Past medical history per these records includes CAD, AICD implantation, CHF, COPD, PUD, renal failure, hypothyroidism, and CLAIRE. Pt was extubed yesterday and put on 2 liters NC. Blood pressure was 80's/40's. Today, pt states she feels improved and has no complaints. Blood pressure is improved to 100's systolic and O2 sat is 97% on 1 liter NC. Pt states she is normally on 2 liters NC at home. Potassium is improved to 4.1 today from 3.3 yesterday after replacement. CXR report this morning shows small pleural effusions that have adversely changed. Dr. Beltre saw pt this morning and plans to move her to the 4th floor today. Will consult PT/OT and evaluate for rehab. Plan to DC Estevez catheter and start pt on solid food. KIARA HENSON DO 07/02/20 0529: Supervisory-Addendum Brief Verification & Attestation Participated in pt care: history, MDM, physical Personally performed: exam, history, MDM, supervision of care Care discussed with: Medical Student Procedures: n/a Results interpretation: Verified all documentation Verification and Attestation of Medical Student E/M Service A medical student performed and documented this service in my presence. I reviewed and verified all information documented by the medical student and made modifications to such information, when appropriate. I personally performed the physical exam and medical decision making. Kiara Henson Jul 02, 2020,05:29 ROSALINO BROWN MED STUDENT Jul 01, 2020 11:50 KIARA HENSON DO Jul 02, 2020 05:29
--- NOTE | 2020-07-01 12:40 | NUR ---
THIS NURSE CALLED REPORT TO MACY BEE ON FOURTH FLOOR. PT TAKEN DOWN VIA WHEELCHAIR WITH BELONGINGS.
--- NOTE | 2020-07-01 12:50 | NUR ---
This RN took over patient care at this time. patient alert and orientated on 1L NC resting in bed. requesting to make at phone call at this time. no additional needs
--- NOTE | 2020-07-01 14:50 | Occupational Therapy Eval ---
OT Evaluation-General/PLF Medical Diagnosis Admission Date Jun 28, 2020 at 20:38 Medical Diagnosis: respiratory failure Onset Date: Jun 28, 2020 Therapy Diagnosis Therapy Diagnosis: Weakness Precautions Precautions/Isolations: Fall Prevention, Standard Precautions Weight Bear Status Weight Bearing Restriction: Weight Bearing/Tolerated Referral Physician: Mary Kate Referral Reason: Activity Tolerance, Self Care, Evaluation/Treatment, Strengthening/ROM Medical History Pertinent Medical History: COPD, Heart Failure, Renal Insufficiency, Smoking Additional Medical History CHF Current History Pt. on ventilator support from 06-28-20-06-30-20. Reviewed History: Yes Social History Home: Apartment Current Living Status: Children Entry Into Home: Level Entry ADL-Prior Level of Function SCALE: Activities may be completed with or without assistive devices. 8-Lkqtbgspzr-mavsjlg completes the activity by him/herself with no assistance from a helper. 5-Set-up or Clean-up Assistance-helper sets up or cleans up; patient completes activity. [place] assists only prior to or following the activity. 4-Supervision or Touching Assistance-helper provides verbal cues and/or touching/steadying and/or contact guard assistance as patient completes activity. Assistance may be provided throughout the activity or intermittently. 3-Partial/Moderate Assistance-helper does LESS THAN HALF the effort. [place] lifts, holds or supports trunk or limbs, but provides less than half the effort. 2-Substantial/Maximal Assistance-helper does MORE THAN HALF the effort. [place] lifts or holds trunk or limbs and provides more than half the effort. 1-Iregkbsst-saehnw does ALL the effort. Patient does none of the effort to complete the activity. Or, the assistance of 2 or more helpers is required for the patient to complete the activity. If activity was not attempted, code reason: 7-Patient Refused. 9-Not Applicable-not attempted and the patient did not perform the activity before the current illness, exacerbation or injury. 10-Not Attempted due to Environmental Limitations-(lack of equipment, weather restraints, etc.). 88-Not Attempted due to Medical Conditions or Safety Concerns. ADL PLOF Comments Pt. states that she lives with her son. Her son does the cooking and cleaning. Pt. is independent with daily skills such as bathing/dressing. She uses a rolling walker. Pt. does not drive. Self Care: Needed Some Help Functional Cognition: Independent DME/Equipment: Bath Chair, Tub/Shower DME/Equipment Comments Rolling walker. Drive Self: No OT Current Status Subjective No pain reported. Mental Status/Objective Patient Orientation: Person, Place, Time, Situation Current Hand Dominance: Right Upper Extremity ROM Pt. is able to flex bilateral shoulders to approximately 90 degrees. All other joints WFL. Upper Extremity Strength 3/5 bilateral UE strength. ADL-Treatment On/Off Footwear (QC): 6 Toileting Hygiene (QC): 2 (Reported by pt.) Other Treatments Pt. asleep but wakes up. Agrees to work with OT. Pt. transfers supine-sit with SBA. Pt. able to stand at bedside with SBA, approximately 1 minute with no LOB and no equipment for support. Pt. sits back down and is able to bring bilateral feet up to her and doff/don slipper socks. Pt. reports that she is able to eat, but does not have a big appetite. Pt. reports that she had a BM earlier, but due to magnitude, nursing assisted her. Pt. states that she completed sponge bath in ICU previous to transfer down. Pt. able to hold water pitcher and take a drink. Does demonstrate UE weakness. Would benefit from occupational therapy for overall strength training with functional tasks. Education OT Patient Education: Correct positioning, Modified ADL techniques, Progress toward Goal/Update tx plan, Purpose of tx/functional activities, Reviewed precautions, Rehab process, Transfer techniques Teaching Recipient: Patient Teaching Methods: Demonstration, Discussion Response to Teaching: Verbalize Understanding, Return Demonstration OT [employer] Programmer Goals Correction Goals Time Frame: Jul 08, 2020 Eating (QC): 6 Oral Hygiene (QC): 6 Toileting Hygiene (QC): 6 Shower/Bathe Self (QC): 5 Upper Body Dressing (QC): 6 Lower Body Dressing (QC): 6 On/Off Footwear (QC): 6 Additional Goals: 1-Demonstrate ADL Tasks, 2-Verbalize Understanding, 3- ImproveStrength/Annelise 1=Demonstrate adherence to instructed precautions during ADL tasks. 2=Patient will verbalize/demonstrate understanding of assistive devices/modifications for ADL. 3=Patient will improve strength/tolerance for activity to enable patient to perform ADL's. OT Education/Plan Problem List/Assessment Assessment: Decreased Activ Tolerance, Decreased UE Strength, Impaired I ADL's, Impaired Self-Care Skills Discharge Recommendations Plan/Recommendations: Continue POC Therapy Discharge Recommendati: Home & Family Treatment Plan/Plan of Care Treatment,Training & Education: Yes Patient would benefit from OT for education, treatment and training to promote independence in ADL's, mobility, safety and/or upper extremity function for ADL's. Plan of Care: ADL Retraining, Functional Mobility, UE Funct Exercise/Act Treatment Duration: Jul 08, 2020 Frequency: 5 times per week Estimated Hrs Per Day: .25 hour per day Agreement: Yes Rehab Potential: Good Time/GCodes Start Time: 14:00 Stop Time: 14:15 Total Time Billed (hr/min): 15 Billed Treatment Time 1, JAKUB BABIN OT Jul 01, 2020 14:50
--- NOTE | 2020-07-01 16:00 | NUR ---
patient called this RN into room stating she felt as though she was having a panic attack and couldn't breath. This RN assessed patient lung sounds clear to auscultation, skin not hot or cold to touch. blood pressure and heart rate within normal limits. patient currently on 1 L NC stating at roughly 86-88% O2. Patient stated she is unaware of what her baseline O2 level is with her having COPD and asked what she does at home to calm her nerves when anxious. patient stated she usually takes Xanax at home for her nerves. Xanax will be administered and respiratory therapy called at this time to assess patient.
[2020-07-01] MEDS: ALPRAZolam 0.25 MG (XANAX) TAB PO PRN (16:17)
--- NOTE | 2020-07-01 16:30 | NUR ---
patient assessed again at this time. patient is stating at 95% on 2L at this time. patient stated she still feels anxious and is requesting her CPAP machine at this time but stated no one will bring it to her. son called by this RN and stated he would bring it in a little bit.
--- NOTE | 2020-07-01 17:34 | NUR ---
O2 dropped to 75% and patient stated she felt like she would pass out. Due to inability to keep O2 above 90% patient was started on Vapotherm. Respiratory Therapy notified Gilberto of patient statu. Orders for CBC, CMP, BNP, ABG, chest x-ray. patient stated she feels better at this time and is stating at 96% O2. blood pressure and heart rate still stable 121/69 BP heart rate 95 bpm
--- NOTE | 2020-07-01 17:35 | NUR ---
RT chose to start Bipap at this time not Vapotherm
[2020-07-01 17:43] LABS: ABG BASE EXCESS -1.9 MMOL/L (-2.5-2.5); ABG OXYGEN SATURATION 99 % (94-100); ABG PCO2 40 MMHG (35-45); ABG PH 7.37 (7.37-7.43); ABG PO2 122 MMHG (79-93); ABG TCO2 23.9 MMOL/L (21.0-31.0)
[2020-07-01 17:47] LABS: ALLENS TEST POS; INSPIRED O2 50%; PATIENT TEMP 36.9; VENTILATOR NO
--- NOTE | 2020-07-01 17:52 | Diagnostic Imaging Report ---
INDICATION: Shortness of breath. COMPARISON: 07/01/2020. FINDINGS: Single view of the chest demonstrates cardiac enlargement with worsening infiltrates primarily in the right hemithorax. Small effusions are stable. There is no pneumothorax. Pacemaker is stable. IMPRESSION: Worsening interstitial infiltrates within the right lung representing pneumonia. Asymmetric pulmonary edema is not excluded. Dictated by: Dictated on workstation # [id number]
[2020-07-01 18:08] LABS: BASOPHILS % (AUTO) 0 % (0-10); EOSINOPHILS # (AUTO) 0.1 10^3/uL (0.0-0.3); EOSINOPHILS % (AUTO) 1 % (0-10); HEMATOCRIT 32 % (35-52); LYMPHOCYTES # (AUTO) 0.7 10^3/uL (1.0-4.0); LYMPHOCYTES % (AUTO) 8 % (12-44); MEAN CORPUSCULAR HEMOGLOBIN 28 pg (25-34); MEAN CORPUSCULAR HGB CONC 31 g/dL (32-36); MEAN CORPUSCULAR VOLUME 92 fL (80-99); MEAN PLATELET VOLUME 9.8 fL (9.0-12.2); MONOCYTES # (AUTO) 0.4 10^3/uL (0.0-1.0); MONOCYTES % (AUTO) 5 % (0-12); NEUTROPHILS # (AUTO) 7.5 10^3/uL (1.8-7.8); NEUTROPHILS % (AUTO) 85 % (42-75); PLATELET COUNT 222 10^3/uL (130-400); WHITE BLOOD COUNT 8.8 10^3/uL (4.3-11.0)
[2020-07-01 18:18] LABS: ALBUMIN 3.5 GM/DL (3.2-4.5)
[2020-07-01 18:20] LABS: CALCIUM 8.6 MG/DL (8.5-10.1)
[2020-07-01 18:21] LABS: TOTAL PROTEIN 6.1 GM/DL (6.4-8.2)
[2020-07-01 18:23] LABS: BILIRUBIN,TOTAL 0.6 MG/DL (0.1-1.0)
[2020-07-01 18:25] LABS: CREATININE SERUM 1.06 MG/DL (0.60-1.30)
--- NOTE | 2020-07-01 19:02 | NUR ---
Telephone orders to per Patt for 40IV lasix once and 40 PO potassium once
[2020-07-01] MEDS ORDERED: KCL 8 MEQ (MICRO K) TABLET PO ONE (19:15)
[2020-07-01] MEDS ORDERED: FUROSEMIDE 40 MG/4 ML INJ (LASIX) IVP ONE (19:15)
[2020-07-01] MEDS ORDERED: KCL 20 MEQ TAB (K-DUR) PO ONE (19:30)
[2020-07-01] MEDS: SENNA W/DOCUSATE (SENOKOT S) TABLET PO SCH (21:15)
[2020-07-01] MEDS: polyethylene glycoL POWDER 17 GM (MIRALAX) PACK PO SCH ×2 (21:17→21:19)
[2020-07-01] MEDS: ENOXAPARIN 30 MG/0.3 ML (LOVENOX) SYR SC SCH (21:17)
[2020-07-02 00:15] VITALS: BP 102/62
[2020-07-02] MEDS: RT-ALBUTEROL INHALER HFA (VENTOLIN HFA) 18 GM IH SCH ×7 (02:37→21:41)
[2020-07-02 04:32] VITALS: BP 91/52
[2020-07-02 05:58] LABS: CALCIUM 8.1 MG/DL (8.5-10.1); CREATININE SERUM 0.94 MG/DL (0.60-1.30); MAGNESIUM 1.8 MG/DL (1.6-2.4); POTASSIUM 3.7 MMOL/L (3.6-5.0)
[2020-07-02 08:12] VITALS: BP 105/66
[2020-07-02] MEDS: CARVEDILOL 3.125 MG (COREG) TABLET PO SCH ×3 (08:13→20:09)
[2020-07-02] MEDS: KCL 10 MEQ TAB (MICRO K) PO SCH (08:13)
[2020-07-02] MEDS: ALPRAZolam 0.25 MG (XANAX) TAB PO PRN ×2 (08:15→20:57)
[2020-07-02] MEDS: SENNA W/DOCUSATE (SENOKOT S) TABLET PO SCH ×2 (08:18→20:10)
[2020-07-02] MEDS: ENALAPRIL 2.5 MG (VASOTEC) TAB PO SCH (08:18)
[2020-07-02] MEDS ORDERED: PANTOPRAZOLE 40 MG (PROTONIX) TAB PO SCH (09:00)
[2020-07-02] MEDS ORDERED: ASPIRIN E.C. 81 MG (ECOTRIN) TAB PO SCH (09:00)
[2020-07-02] MEDS ORDERED: FUROSEMIDE 40 MG (LASIX) TAB PO SCH (09:00)
[2020-07-02] MEDS ORDERED: MONTELUKAST 10 MG (SINGULAIR) TAB PO SCH (09:00)
--- NOTE | 2020-07-02 09:26 | Progress Note - Hospitalist ---
Subjective HPI/CC On Admission Date Seen by Provider: Jul 02, 2020 Time Seen by Provider: 10:00 CC: Respiratory failure HPI: This is a 64yoWF who was transferred from OSH who is currently on a vent due to CHF and COPD. Patient is sedated and having no issues. I am having difficulty finding information with clinical details. Subjective/Events-last exam PCP: [place] [facility] Vapotherm and BiPAP required due to SOB Feels like anxiety is a problem [facility] Breathing better Cardiology gave her Lasix Needs to stay one more day Review of Systems General: Fatigue, Malaise Pulmonary: Dyspnea Objective Exam Vital Signs Vital Signs Date Time Temp Pulse Resp B/P (MAP) Pulse Ox O2 Delivery O2 Flow Rate FiO2 07/03/20 03:28 36.0 69 18 93/53 (66) 95 Venturi Mask 2.00 07/01/20 21:10 50 Capillary Refill : Less Than 3 Seconds General Appearance: No Apparent Distress, WD/WN, Chronically ill, Thin Respiratory: Chest Non Tender, Lungs Clear, Normal Breath Sounds, No Accessory Muscle Use, No Respiratory Distress Cardiovascular: Regular Rate, Rhythm, No Edema, No Gallop, No JVD, No Murmur, Normal Peripheral Pulses Neurologic/Psychiatric: Alert, Oriented x3, No Motor/Sensory Deficits, Normal Mood/Affect Results/Procedures Lab Laboratory Tests 07/02/20 05:00 Patient resulted labs reviewed. Assessment/Plan Assessment and Plan Assess & Plan/Chief Complaint Assessment: VDRF CHF COPD Smoker Plan: Vent ICU 06/30/20: Monitor CHF Extubate when ready Appreciate Dr. Beltre 07/01/20: Transfer to 4th floor Discontinue catheter PT/OT and rehab eval Use incentive spirometer 07/02/20: DC tomorrow Monitor for any resp distress recurrence Diagnosis/Problems Diagnosis/Problems (1) Acute respiratory failure Qualifiers: Qualified Codes: J96.01 - Acute respiratory failure with hypoxia Clinical Quality Measures DVT/VTE Risk/Contraindication: Risk Factor Score Per Nursin RFS Level Per Nursing on Admit: 4+=Very High TIMA HENSON DO Jul 02, 2020 09:26
--- NOTE | 2020-07-02 09:56 | Progress Note - Cardiology ---
Cardiology SOAP Progress Note Subjective: Sitting up in recliner at the bedside. Reports "panic attack" over night. Received IV Lasix. States she feels much better today. No c/o CP or palpitations. Wants to go home today Objective: I&O/Vital Signs 07/02/20 07/02/20 07/02/20 07/02/20 00:15 02:37 04:32 07:43 Temp 36.4 36.2 Pulse 71 70 70 Resp 24 25 16 B/P (MAP) 102/62 (75) 91/52 (65) Pulse Ox 100 99 100 100 O2 Delivery NIV Bilevel High Flow N/C Nasal Cannula O2 Flow Rate 50.00 50.00 4.00 4.00 07/02/20 07/02/20 08:12 08:37 Temp 36.8 Pulse 69 B/P (MAP) 105/66 (79) O2 Delivery High Flow N/C O2 Flow Rate 3.00 07/02/20 00:00 Intake Total 440 ml Output Total 1200 ml Balance -760 ml Constitutional: AAO x 3, well-developed Respiratory: No accessory muscle use, No respiratory distress; other (scattered rhonchi, bi-basilar crackles) Cardiovascular: regular rate-rhythm; No JVD; S1 and S2, systolic murmur (2/6 STAN ) Gastrointestional: No tender; soft, audible bowel sounds Extremities: No clubbing, No cyanosis; no lower extremity edema bilateral Neurologic/Psychiatric: oriented x 3, other (moves all limbs equally) Skin: normal color, warm/dry Results/Procedures: Labs Laboratory Tests 07/01/20 17:32: Blood Gas Puncture Site RT RAD, Blood Gas Patient Temperature 36.9, Arterial Blood pH 7.37, Arterial Blood Partial Pressure CO2 40, Arterial Blood Partial Pressure O2 122H, Arterial Blood HCO3 23, Arterial Blood Total CO2 23.9, Arterial Blood Oxygen Saturation 99, Arterial Blood Base Excess -1.9, Dar Test POS, Blood Gas Ventilator Setting NO, Blood Gas Inspired Oxygen 50% 07/01/20 17:51: White Blood Count 8.8, Red Blood Count 3.52L, Hemoglobin 10.0L, Hematocrit 32L, Mean Corpuscular Volume 92, Mean Corpuscular Hemoglobin 28, Mean Corpuscular Hemoglobin Concent 31L, Red Cell Distribution Width 14.3, Platelet Count 222, Mean Platelet Volume 9.8, Immature Granulocyte % (Auto) 1, Neutrophils (%) (Auto) 85H, Lymphocytes (%) (Auto) 8L, Monocytes (%) (Auto) 5, Eosinophils (%) (Auto) 1, Basophils (%) (Auto) 0, Neutrophils # (Auto) 7.5, Lymphocytes # (Auto) 0.7L, Monocytes # (Auto) 0.4, Eosinophils # (Auto) 0.1, Basophils # (Auto) 0.0, Immature Granulocyte # (Auto) 0.0, Sodium Level 139, Potassium Level 4.0, Chloride Level 106, Carbon Dioxide Level 22, Anion Gap 11, Blood Urea Nitrogen 16, Creatinine 1.06, Estimat Glomerular Filtration Rate 52, BUN/Creatinine Ratio 15, Glucose Level 152H, Calcium Level 8.6, Corrected Calcium 9.0, Total Bilirubin 0.6, Aspartate Amino Transf (AST/SGOT) 37H, Alanine Aminotransferase (ALT/SGPT) 81H, Alkaline Phosphatase 82, B-Type Natriuretic Peptide 1373.7H, Total Protein 6.1L, Albumin 3.5 07/02/20 05:00: Sodium Level 142, Potassium Level 3.7, Chloride Level 107, Carbon Dioxide Level 26, Anion Gap 9, Blood Urea Nitrogen 13, Creatinine 0.94, Estimat Glomerular Filtration Rate 60, BUN/Creatinine Ratio 14, Glucose Level 81, Calcium Level 8.1L, Magnesium Level 1.8 Microbiology 06/28/20 MRSA Screen - Final, Complete MRSA not isolated A/P: Assessment: Acute on chronic systolic congestive heart failure Severe dilated cardiomyopathy. Echo of 07/01/20: global hypokinesis and marked enlargement of LV with LVEF approx 15-20%, mild enlargement of LA, mild MR, mod TR, pulmonary hypertension with PASP approx 45-50 mmHg, small amt of pericardial fluid (hemodynamically insignificant) Report a h/o CAD and coronary stents and cardiomyopathy. Does not know details. Brush Washer is Dr Nichols in [place], [place] Slight elevation in troponin, probably type II myocardial infarction secondary to heart failure and hypoxemia History of permanent pacemaker-ICD, followed by Dr Nichols History of COPD with recurrent respiratory failure COVID-19 negative Plan: Complex management due to advanced dilated cardiomyopathy and relatively low bp that does not permit enough bb and GUERRERO inhib Continue diuretic regimen - received additional IV Lasix last night auditor labs DVT prophylaxis with enoxaparin CHALINO FISH Jul 02, 2020 09:56
--- NOTE | 2020-07-02 10:08 | Physical Therapy Daily Note ---
PT Daily Note-Current Subjective Pt in shower working on ADLs with OT upon arrival. Pt agrees to PT/OT co-treat so OT watches ADLs while PT focuses on dynamic balance. Pain Location: No Pain Reported Mental Status Patient Orientation: Person, Place, Situation Attachments: Oxygen Transfers SCALE: Activities may be completed with or without assistive devices. 5-Bxvgkefden-pdracva completes the activity by him/herself with no assistance from a helper. 5-Set-up or Clean-up Assistance-helper sets up or cleans up; patient completes activity. [place] assists only prior to or following the activity. 4-Supervision or Touching Assistance-helper provides verbal cues and/or touching/steadying and/or contact guard assistance as patient completes activity. Assistance may be provided throughout the activity or intermittently. 3-Partial/Moderate Assistance-helper does LESS THAN HALF the effort. [place] lifts, holds or supports trunk or limbs, but provides less than half the effort. 2-Substantial/Maximal Assistance-helper does MORE THAN HALF the effort. [place] lifts or holds trunk or limbs and provides more than half the effort. 2-Joybjogqt-sgqcrz does ALL the effort. Patient does none of the effort to complete the activity. Or, the assistance of 2 or more helpers is required for the patient to complete the activity. If activity was not attempted, code reason: 7-Patient Refused. 9-Not Applicable-not attempted and the patient did not perform the activity before the current illness, exacerbation or injury. 10-Not Attempted due to Environmental Limitations-(lack of equipment, weather restraints, etc.). 88-Not Attempted due to Medical Conditions or Safety Concerns. Sit to Stand (QC): 4 Toilet Transfer (QC): 4 Weight Bearing Full Weight Bearing Full Weight Bearing Gait Training Does the Patient Walk?: Yes Distance: 15' Walk 10 feet (QC): 4 Gait Persons Needed: 1 Gait Assistive Device: FWW TOBACCO DIPPER assists with managing O2 line and Estevez. Wheelchair Training Does the Pt Use a Wheelchair?: No Exercises Supine Ex: Ankle pumps, Quad Set, Glut sets, Heel Slides, Straight leg raise, Hip abd/add Supine Reps: 15 Treatments OT focuses on ADLs of showering & dressing while PT focuses on dynamic balance during tasks as well as strengthening in EX. Assessment Current Status: Good Progress Pt demonstrates improved breathing, strengthening and balance. PT Cattle Killer Goals Half-Way Goals PT Cattle Killer Goals Time Frame: Jul 12, 2020 Roll Left & Right (QC): 6 Sit to Lying (QC): 6 Lying-Sitting on Side/Bed(QC): 6 Sit to Stand (QC): 6 Chair/Bji-gj-Vkbjf Xfer(QC): 6 Toilet Transfer (QC): 6 Does the Patient Walk: Yes Walk 10 feet (QC): 6 Walk 50ft with 2 Turns (QC): 6 Walk 150 ft (QC): 6 PT Plan Problem List Problem List: Activity Tolerance, Functional Strength, Gait Treatment/Plan Treatment Plan: Continue Plan of Care Treatment Plan: Education, Functional Activity Annelise, Functional Strength, Gait, Safety, Therapeutic Exercise, Transfers Treatment Duration: Jul 12, 2020 Frequency: 6 times per week Estimated Hrs Per Day: .25 hour per day Patient and/or Family Agrees t: Yes Safety Risks/Education Patient Education: Gait Training, Transfer Techniques, Correct Positioning, Safety Issues Teaching Recipient: Patient Teaching Methods: Discussion Response to Teaching: Verbalize Understanding Time/GCodes Time In: 915 Time Out: 945 Total Billed Treatment Time: 30 Total Billed Treatment 1, FA (15m) & EX (15m) Co-treat 15m ([id number]) SLAVA HAYES PTA Jul 02, 2020 10:08
--- NOTE | 2020-07-02 10:15 | Occupational Ther Daily Note ---
OT Current Status-Daily Note Subjective Pt alert, sitting up in bed. Pt agrees to therapy. No c/o pain. States that she is feeling much better today. Mental Status/Objective Patient Orientation: Person, Place, Time, Situation Attachments: Estevez Catheter, IV, Oxygen (4L) ADL-Treatment Pt agrees to shower. PEARSON covered IV site. Pt ambulates into bathroom without AD, reaches for benoit surfaces when ambulating. Pt transfers into shower with SBA using grabbar and bench. Pt completes shower with supervision, stands throu gh most of shower using grabbars for stabilization. PT co-treating to work on dynamic standing balance with shower, dressing ambulation and transfers. OT working on ADLs, hand placement during transfers. Pt able to don/doff socks after set up. Pt donned underwear after set up with SBA while standing to hike pants over hips. Pt donned/doffed hospital gown. Pt completed oral care in shower, independently. After session, pt left in care of PT. All needs met. Therapy Code Descriptions/Definitions Functional [place] Measure: 0=Not Assessed/NA 4=Minimal Assistance 1=Total Assistance 5=Supervision or Setup 2=Maximal Assistance 6=Modified [place] 3=Moderate Assistance 7=Complete IndependenceSCALE: Activities may be completed with or without assistive devices. 2-Ignarjgbcq-xetrlzj completes the activity by him/herself with no assistance from a helper. 5-Set-up or Clean-up Assistance-helper sets up or cleans up; patient completes activity. [place] assists only prior to or following the activity. 4-Supervision or Touching Assistance-helper provides verbal cues and/or touching/steadying and/or contact guard assistance as patient completes activity. Assistance may be provided throughout the activity or intermittently. 3-Partial/Moderate Assistance-helper does LESS THAN HALF the effort. [place] lifts, holds or supports trunk or limbs, but provides less than half the effort. 2-Substantial/Maximal Assistance-helper does MORE THAN HALF the effort. [place] lifts or holds trunk or limbs and provides more than half the effort. 5-Akxlzmhym-fwoivj does ALL the effort. Patient does none of the effort to complete the activity. Or, the assistance of 2 or more helpers is required for the patient to complete the activity. If activity was not attempted, code reason: 7-Patient Refused. 9-Not Applicable-not attempted and the patient did not perform the activity before the current illness, exacerbation or injury. 10-Not Attempted due to Environmental Limitations-(lack of equipment, weather restraints, etc.). 88-Not Attempted due to Medical Conditions or Safety Concerns. Oral Hygiene (QC): 6 Shower/Bathe Self (QC): 4 Lower Body Dressing (QC): 4 On/Off Footwear: 5 OT Roller Maker Goals Care Home Goals Time Frame: Jul 08, 2020 Eating (QC): 6 Oral Hygiene (QC): 6 Toileting Hygiene (QC): 6 Shower/Bathe Self (QC): 5 Upper Body Dressing (QC): 6 Lower Body Dressing (QC): 6 On/Off Footwear (QC): 6 Additional Goals: 1-Demonstrate ADL Tasks, 2-Verbalize Understanding, 3- ImproveStrength/Annelise 1=Demonstrate adherence to instructed precautions during ADL tasks. 2=Patient will verbalize/demonstrate understanding of assistive moisés elisa/modifications for ADL. 3=Patient will improve strength/tolerance for activity to enable patient to perform ADL's. OT Education/Plan Problem List/Assessment Assessment: Decreased Activ Tolerance, Decreased UE Strength, Impaired Funct Balance, Impaired Self-Care Skills Discharge Recommendations Plan/Recommendations: Continue POC Treatment Plan/Plan of Care Patient would benefit from OT for education, treatment and training to promote independence in ADL's, mobility, safety and/or upper extremity function for ADL's. Plan of Care: ADL Retraining, Functional Mobility, UE Funct Exercise/Act Treatment Duration: Jul 08, 2020 Frequency: 5 times per week Estimated Hrs Per Day: .25 hour per day Agreement: Yes Rehab Potential: Good Time/GCodes Start Time: 09:00 Stop Time: 09:30 Total Time Billed (hr/min): 30 Billed Treatment Time 1 visit-ADL 2 (30 min) VALENCIA DENG Jul 02, 2020 10:15
[2020-07-02] MEDS: UMECLIDINIUM BROMIDE (INCRUSE ELLIPTA) 7'S IH PRN (10:27)
[2020-07-02] MEDS ORDERED: FURO80TA83 PO (11:47)
[2020-07-02] MEDS ORDERED: CARV3.122 PO (11:47)
[2020-07-02] MEDS ORDERED: POTA10TA6 PO (11:47)
[2020-07-02] MEDS ORDERED: ENLP2.5T PO (11:47)
[2020-07-02 12:49] VITALS: BP 95/53
--- NOTE | 2020-07-02 13:56 | NUR ---
IRF Evaluation Order received to evaluate patient for the ARU. Chart review complete - It does appear patient would benefit from further therapy. Dr. Almendarez indicates patient will return home and likely prefer to receive HHC or outpatient therapy services. Discontinuation of evaluation. Thank you for this referral.
--- NOTE | 2020-07-02 14:02 | NUR ---
RD ASSESSMENT PMHx: CHF; COPD; renal failure PT INTERACTION: Pt was awake and pleasant during nutrition assessment. Pt states current appetite is good. Note avg PO intake 50% x1d, per chart review. Pt states following a "cardiac diet" at home and has no issues with chewing/swallowing food. Pt states no recent issues with nausea, vomiting, constipation, or diarrhea. Note last BM was 06/30, and pt currently on bowel regimen of miralax BID; and senna BID, per chart review. Pt states no recent wt changes. Note unable to determine recent wt hx, per chart review. Note pt has BMI of 18.0, which is classified as Normal BMI for age, but on the low end of normal. ABNORMAL NUTRITION-RELATED LAB VALUES LOW: Ca 8.1 HIGH: Est. kcal needs: 1525 kcal | 30 kcal/kg Est. Pro needs: 61 g Pro | 1.2 g Pro/kg PES STATEMENT: Inadequate oral intake (NI-2.1) related to loss of appetite as evidenced by pt interview | avg PO intake 50% x1d INTERVENTION: Continue with current diet order of 2000mg Na diet. Pt may benefit from nutrition supplementation if PO intake declines. Encouraged pt to eat when able. Will continue to follow and reassess as pt needs, intake, and status change. Rod Mack, MS RD LD
[2020-07-02 15:49] VITALS: BP 93/51
[2020-07-02 19:46] VITALS: BP 94/58
[2020-07-02] MEDS: polyethylene glycoL POWDER 17 GM (MIRALAX) PACK PO SCH (20:10)
[2020-07-02] MEDS: ENOXAPARIN 30 MG/0.3 ML (LOVENOX) SYR SC SCH (20:57)
[2020-07-02] MEDS ORDERED: PANT40TA52 PO (21:23)
[2020-07-02] MEDS ORDERED: FURO40TA4 PO (21:23)
[2020-07-02] MEDS ORDERED: ALPR.25T PO (21:23)
[2020-07-03] VITALS: BP 98/56
[2020-07-03] MEDS: RT-ALBUTEROL INHALER HFA (VENTOLIN HFA) 18 GM IH SCH ×2 (02:41→06:50)
[2020-07-03 03:28] VITALS: BP 93/53
--- NOTE | 2020-07-03 05:46 | Discharge Summary ---
Discharge Summary Hospital Course Was the Problem List Reviewed?: Yes Problems/Dx: (1) Acute respiratory failure Qualifiers: Qualified Codes: J96.01 - Acute respiratory failure with hypoxia Hospital Course Date of Admission: Jun 28, 2020 at 20:38 Admission Diagnosis : Family Physician/Provider: Date of Discharge: 07/03/20 Discharge Diagnosis: AECOPD, Acute respiratory failure, VDRF s/p extubation, CHF 10% EF Hospital Course: Patient was transferred from OSH due to diversion issues related to COVID. Patient remained intubated. EF 10% on ECHO required Lasix and Cardiology consultation. VDRF maintained by ICU. Extubated successfully and patient was transferred to 4th floor. No major events occurred and she was stable at [place]. Labs and Pending Lab Test: Microbiology 06/28/20 MRSA Screen - Final, Complete MRSA not isolated Home Meds Active Pantoprazole Sodium 40 Mg Tablet.dr 40 Mg PO DAILY Furosemide 40 Mg Tablet 80 Mg PO DAILY Xanax Tablet (Alprazolam) 0.25 Mg Tab 0.25 Mg PO Q8H PRN Klor-Con 10 (Potassium Chloride) 10 Meq Tablet.er 10 Meq PO DAILY@0700 Lasix (Furosemide) 80 Mg Tablet 80 Mg PO DAILY Enalapril Maleate 2.5 Mg Tablet 2.5 Mg PO DAILY Carvedilol 3.125 Mg Tablet 3.125 Mg PO BID Reported Miralax (Polyethylene Glycol 3350) 17 Gm Powd.pack 17 Gm PO DAILY PRN Aspirin EC (Aspirin) 81 Mg Tablet.dr 81 Mg PO DAILY Amiodarone HCl 400 Mg Tablet 400 Mg PO TID Atorvastatin Calcium 20 Mg Tablet 20 Mg PO HS Spiriva (Tiotropium [place]) 1 Inh Aerp 1 Puff INH DAILY PRN Furosemide 40 Mg Tablet 40 Mg PO DAILY Montelukast Sodium 10 Mg Tablet 10 Mg PO DAILY Iprat-Albut 0.5-3(2.5) mg/3 ml (Ipratropium/Albuterol Sulfate) 3 Ml Ampul.neb 3 Ml NEB Q6H PRN Prednisone 20 Mg Tab 20 Mg PO DAILY FILLED 06-19-2020 #12 DAY SUPPLY Assessment/Pt Instructions PCP [address] Horn Discharge Planning: <30 minutes discharge planning Discharge Instructions Discharge Diet: No Restrictions Discharge Physical Examination Vital Signs Vital Signs Date Time Temp Pulse Resp B/P (MAP) Pulse Ox O2 Delivery O2 Flow Rate FiO2 07/03/20 03:28 36.0 69 18 93/53 (66) 95 Venturi Mask 2.00 07/01/20 21:10 50 General Appearance: No Apparent Distress, WD/WN, Chronically ill Allergies: Coded Allergies: Iodinated Contrast Media (Verified Allergy, Unknown, 06/28/20) ibuprofen (Verified Allergy, Unknown, 06/28/20) iodine (Verified Allergy, Unknown, 06/28/20) Discharge Summary Date of Admission Jun 28, 2020 at 20:38 Date of Discharge Discharge Date: Jul 03, 2020 Admission Diagnosis Assessment: VDRF CHF COPD Smoker Plan: Vent ICU Discharge Diagnosis Assessment: VDRF CHF COPD Smoker Plan: Vent ICU 06/30/20: Monitor CHF Extubate when ready Appreciate Dr. Beltre 07/01/20: Transfer to 4th floor Discontinue catheter PT/OT and rehab eval Use incentive spirometer 07/02/20: DC tomorrow Monitor for any resp distress recurrence (1) Acute respiratory failure Qualifiers: Qualified Codes: J96.01 - Acute respiratory failure with hypoxia Clinical Quality Measures DVT/VTE Risk/Contraindication: Risk Factor Score Per Nursin RFS Level Per Nursing on Admit: 4+=Very High TIMA HENSON DO Jul 03, 2020 05:46
[2020-07-03] MEDS: KCL 10 MEQ TAB (MICRO K) PO SCH (06:17)
[2020-07-03] MEDS: UMECLIDINIUM BROMIDE (INCRUSE ELLIPTA) 7'S IH PRN (06:50)
--- NOTE | 2020-07-03 07:58 | NUR ---
AM ASSESSMENT NOT COMPLETED. IV REMOVED AND DISCHARGE INFORMATION AND INSTRUCTIONS GIVEN TO PT BY FACILITY SECURITY OFFICER RN PETEY. PT IS DISCHARGED AT THIS TIME SHE HAS F/U APPT WITH [facility]. CONFIRMED BY ME THAT SHE UNDERSTANDS ALL DISCHARGE INSTRUCTIONS. DISCHARGED PER WC TO FRONT DOOR WITH CHANGE OF ADDRESS CLERK ON 3L O2 N/C.
== END 2020-07-03 08:01 | disposition home or self-care (01) | DRG 208 ==
LOC: ICU 20:38 → 4TH 07-01 12:50
PROVIDERS: ADMIT Family Medicine; ATTEND Internal Medicine
PROC: 5A1945Z Respiratory Ventilation, 24-96 Consecutive Hours (ICD-10-PCS; principal; 2020-06-28)
DX: J96.21 Acute and chronic respiratory failure with hypoxia (principal); I50.23 Acute on chronic systolic (congestive) heart failure; I21.A1 Myocardial infarction type 2; I42.0 Dilated cardiomyopathy; J43.9 Emphysema, unspecified; F17.210 Nicotine dependence, cigarettes, uncomplicated; I08.1 Rheumatic disorders of both mitral and tricuspid valves; I27.20 Pulmonary hypertension, unspecified; E87.6 Hypokalemia; E83.51 Hypocalcemia; E87.8 Other disorders of electrolyte and fluid balance, not elsewhere classified; E16.2 Hypoglycemia, unspecified; I25.10 Atherosclerotic heart disease of native coronary artery without angina pectoris; D64.9 Anemia, unspecified; F41.9 Anxiety disorder, unspecified; F32.9 Major depressive disorder, single episode, unspecified; M19.91 Primary osteoarthritis, unspecified site; Z95.5 Presence of coronary angioplasty implant and graft; Z20.828 Contact with and (suspected) exposure to other viral communicable diseases; Z95.810 Presence of automatic (implantable) cardiac defibrillator; Z87.01 Personal history of pneumonia (recurrent); Z86.711 Personal history of pulmonary embolism
CPT/HCPCS: 36415; 71045; 80048; 80053; 82805; 82962; 83735; 83880; 84100; 84484; 85007; 85025; 85027; 87070; 87081; 87205; 87635; 93005; 93306; 94002; 94003; 94640; 94660; 94760; 94799